=== PATIENT | male | born 1945 | race Caucasian/White ===

== ENCOUNTER → 2016-11-14 | Outpatient (CLI) | payer MEDICARE ==
--- NOTE | 2016-11-14 10:58 | US ---
EXAMINATION TYPE: US duplex aorta DATE OF EXAM: 11/14/2016 8:55 AM COMPARISON: NONE CLINICAL HISTORY: Atherosclerosis I70.0. EXAM MEASUREMENTS: Abdominal Aorta: Proximal: 2.5 x 2.6cm Mid: 2.0 x 2.0cm Distal: 1.9 x 2.1cm Bifurcation: Right: 1.1 x 1.5cm Left: 1.1 x 1.2cm TECHNOLOGIST IMPRESSION: Technical limitations, no evidence of AAA at this time IMPRESSION: No aneurysmal dilatation. Some atherosclerosis is present within the aorta.
== END | disposition home or self-care (01) ==
LOC: RADUSWWP 08:29
PROVIDERS: ATTEND Family Medicine
DX: I70.0 Atherosclerosis of aorta (principal)
CPT/HCPCS: 93979

== ENCOUNTER → 2018-08-27 | Outpatient (CLI) | payer MEDICARE ==
--- NOTE | 2018-08-27 11:46 | US ---
EXAMINATION TYPE: US duplex aorta DATE OF EXAM: 08/27/2018 COMPARISON: Prior ultrasound November 14, 2016 CLINICAL HISTORY: I70.0 Atherosclerosis of aorta. EXAM MEASUREMENTS: Abdominal Aorta: Proximal: 2.9 x 2.7cm Mid: 1.9 x 2.2cm Distal: 2.0 x 1.2cm Right Iliac: 1.2 x 1.5cm Left Iliac: 1.0 x 1.3cm Technically difficult study due to patient body habitus No evidence of AAA at this time. IMPRESSION: No greater than 3 cm abdominal aortic aneurysm. Suboptimal study without significant h[place] ge from prior.
== END ==
LOC: RADUSWWP 10:45
PROVIDERS: ATTEND Family Medicine
DX: I71.4 Abdominal aortic aneurysm, without rupture (principal)
CPT/HCPCS: 93979

== ENCOUNTER 2018-09-04 10:38 | Observation (INO) | payer MEDICARE ==
--- NOTE | 2018-09-04 10:58 | ED ---
Chest Pain [facility] - General Chief Complaint: Chest Pain Stated Complaint: chest pain Time Seen by Provider: 09/04/18 10:52 Source: patient, RN notes reviewed, old records reviewed Mode of arrival: ambulatory Limitations: no limitations - History of Present Illness Initial Comments: This is a 73-year-old male to the ER for evasive chest pain right-sided chest pain stabbing twinging chest pain. Patient has history of CAD known. Patient does follow cardiology. Patient was on normal PCP follow-up today when he mentioned to his physician that he is this new chest pain which is been noticing blood in the hospital episodic for a couple weeks to months. Patient was sent to ER for further evaluation. Patient continues to complain of chest pain here. He states yesterday for 2 days ago on [place] he did have an episode of sweating with the chest pain. He states he has terrible exercise tolerance and is always short of breath. MD Complaint: chest pain (Right side) -: minutes(s) Onset: during rest Pain Location: substernal, right chest Pain Radiation: back Severity scale (1-10): 3 Quality: tightness, sharp Consistency: constant Improves With: nothing Worsens With: exertion Anginal Symptoms: diaphoresis, dyspnea Treatments Prior to Arrival: none - Related Data Home Medications Medication Instructions Recorded Confirmed Atenolol [Tenormin] 25 mg PO HS 08/29/16 09/04/18 Isosorbide Mononitrate ER [Imdur] 30 mg PO DAILY 08/29/16 09/04/18 Latanoprost [Xalatan 0.005%] 1 drop BOTH EYES HS 08/29/16 09/04/18 [place] Extract 1 cap PO DAILY 08/29/16 09/04/18 [place]-3 Fatty Acids/Fish Oil [Fish 1 cap PO DAILY 08/29/16 09/04/18 Oil 1,000 mg Softgel] Pravastatin Sodium [Pravachol] 20 mg PO HS 08/29/16 09/04/18 RX: Aspirin 81 mg PO BID 08/29/16 09/04/18 RX: Niacin 500 mg PO BID 08/29/16 09/04/18 RX: Omeprazole 20 mg PO DAILY 08/29/16 09/04/18 RX: metFORMIN HCL 1,000 mg PO BID 08/29/16 09/04/18 Ranitidine HCl [Zantac] 150 mg PO BID 08/29/16 09/04/18 Terazosin HCl [Hytrin] 10 mg PO HS 08/29/16 09/04/18 amLODIPine [Norvasc] 5 mg PO DAILY 08/29/16 09/04/18 Allergies Allergy/AdvReac Type Severity Reaction Status Date / Time No Known Allergies Allergy Verified 09/04/18 11:43 Review of Systems ROS Statement: Those systems with pertinent positive or pertinent negative responses have been documented in the HPI. ROS Other: All systems not noted in ROS Statement are negative. 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 History of Any Multi-Drug Resistant Organisms: None Reported Past Surgical History: Heart Catheterization, Heart Catheterization With Stent, Orthopedic Surgery, Tonsillectomy Additional Past Surgical History / Comment(s): cardiac caths with stents-last time stented was 2003, 2011 cardiac cath tx medically, L hand finger ganglion cyst removal, R shoulder spurs removed, R patellar fx with surgery. Past Anesthesia/Blood Transfusion Reactions: Postoperative Nausea & Vomiting ( PONV) Date of Last Stent Placement:: 2003 Past Psychological History: No Psychological Hx Reported Smoking Status: Never smoker Past Alcohol Use History: None Reported Past Drug Use History: None Reported - Past Family History Father Family Medical History: Cancer, Coronary Artery Disease (CAD), Diabetes Mellitus Additional Family Medical History / Comment(s): Father had testicular cancer. He had heart problems and of this at the age of 76yrs. Mother Family Medical History: Coronary Artery Disease (CAD), Myocardial Infarction ([place] ) Additional Family Medical History / Comment(s): Mother at the age of 39yrs from a [place]. Brother(s) Family Medical History: Cancer Additional Family Medical History / Comment(s): Brother had prostate cancer. General Exam Limitations: no limitations General appearance: alert, in no apparent distress Head exam: Present: atraumatic, normocephalic, normal inspection Eye exam: Present: normal appearance, PERRL, EOMI. Absent: scleral icterus, conjunctival injection, periorbital swelling ENT exam: Present: normal exam, mucous membranes moist Neck exam: Present: normal inspection. Absent: tenderness, meningismus, lymphadenopathy Respiratory exam: Present: normal lung sounds bilaterally. Absent: respiratory distress, wheezes, rales, rhonchi, stridor Cardiovascular Exam: Present: regular rate, normal rhythm, normal heart sounds. Absent: systolic murmur, diastolic murmur, rubs, gallop, clicks GI/Abdominal exam: Present: soft, normal bowel sounds. Absent: distended, tenderness, guarding, rebound, rigid Extremities exam: Present: normal inspection, full ROM, normal capillary refill. Absent: tenderness, pedal edema, joint swelling, calf tenderness Back exam: Present: normal inspection Neurological exam: Present: alert, oriented X3, CN II-XII intact Psychiatric exam: Present: normal affect, normal mood Skin exam: Present: warm, dry, intact, normal color. Absent: rash Course Vital Signs 09/04/18 09/04/18 09/04/18 10:39 11:07 11:19 Temperature 98 F Pulse Rate 80 74 Pulse Rate [ 80 Bilateral] Respiratory 18 18 Rate Blood Pressure 142/81 144/74 O2 Sat by Pulse 98 96 Oximetry 09/04/18 13:41 Temperature 98.0 F Pulse Rate 68 Pulse Rate [ Bilateral] Respiratory 18 Rate Blood Pressure 116/77 O2 Sat by Pulse 96 Oximetry - Reevaluation(s) Reevaluation #1: 09/04/18 14:18 Medical record is reviewed including heart catheterization from 2016 Reevaluation #2: 09/04/18 14:18 Spoke with patient and family, patient still having persistent chest pain Reevaluation #3: 09/04/18 14:[address] Cedillo regarding admission, he is agreeable Chest Pain MDM - MDM 73 male the ER for evaluation. Patient presents today for evaluation regards to chest pain, patient has persistent chest pain here in the ER. EKG troponin negative. Patient be admitted for cardiac observation, place and anticoagulation, telemetry and serial troponins will be ordered. Critical Care Time Critical Care Time: Yes Total Critical Care Time: 31 Disposition Clinical Impression: Chest pain Disposition: ADMITTED IP TO THIS HOSP Condition: Undetermined Instructions: Chest Pain (ED) Is patient prescribed a controlled substance at d/c from ED?: No Referrals: Nic Yousif MD [Primary Care Provider] - 1-2 days
--- NOTE | 2018-09-04 11:38 | XR ---
EXAMINATION TYPE: XR chest 2V DATE OF EXAM: 09/04/2018 COMPARISON: 08/29/2016 HISTORY: 73-year-old male with chest pain TECHNIQUE: PA and lateral views FINDINGS: Heart normal size. Mild elongation thoracic aorta. Mild interstitial prominence is noted. Opacity is somewhat more patchy and confluent at the right infrahilar region. Strandy atelectasis/scar at the pe ripheral left base. No pleural effusion. IMPRESSION: Chronic changes but with more focal patchy right basilar opacity. This could represent atelectasis or developing infiltrate.
[2018-09-04 11:40] LABS: Basophils # (A) 0.1 k/uL (0-0.2); Basophils % (A) 1 %; Eosinophils # (A) 0.5 k/uL (0-0.7); Eosinophils % (A) 6 %; HCT 42.8 % (39.0-53.0); HGB 14.2 gm/dL (13.0-17.5); Lymphocytes # (A) 2.5 k/uL (1.0-4.8); Lymphocytes % (A) 32 %; MCH 31.9 pg (25.0-35.0); MCHC 33.1 g/dL (31.0-37.0); MCV 96.4 fL (80.0-100.0); Mean Platelet Volume 7.3; Monocytes # (A) 0.6 k/uL (0-1.0); Monocytes % (A) 7 %; Neutrophils # (A) 3.9 k/uL (1.3-7.7); Neutrophils % (A) 50 %; Platelet Count 189 k/uL (150-450); RBC 4.44 m/uL (4.30-5.90); RDW 12.5 % (11.5-15.5); WBC 7.8 k/uL (3.8-10.6)
[2018-09-04 11:50] LABS: ALT 33 U/L (21-72); AST 25 U/L (17-59); Albumin 4.2 g/dL (3.5-5.0); Alkaline Phosphatase 54 U/L (38-126); Anion Gap 12 mmol/L; Blood Urea Nitrogen 18 mg/dL (9-20); Calcium 9.6 mg/dL (8.4-10.2); Carbon Dioxide 23 mmol/L (22-30); Chloride 105 mmol/L (98-107); Glucose 112 mg/dL (74-99); Lipase 166 U/L (23-300); Magnesium 1.9 mg/dL (1.6-2.3); Potassium 4.4 mmol/L (3.5-5.1); Prothrombin Time 10.7 sec (9.0-12.0); Sodium 140 mmol/L (137-145); Total Bilirubin 0.5 mg/dL (0.2-1.3)
[2018-09-04 11:51] LABS: Partial Thromboplastin Time 24.3 sec (22.0-30.0)
[2018-09-04 12:12] LABS: Creatine Kinase 122 U/L (55-170)
[2018-09-04 12:23] LABS: Creatine Kinase MB 1.1 ng/mL (0.0-2.4)
[2018-09-04 12:33] LABS: Troponin I <0.012 ng/mL (0.000-0.034)
[2018-09-04] MEDS ORDERED: ASPIRIN 81 MG PO STA (14:15)
[2018-09-04] MEDS ORDERED: NITROGLYCERIN SL TABS 0.4 MG TAB SUBLINGUAL PRN (14:15)
[2018-09-04] MEDS ORDERED: HEPARIN SODIUM,PORCINE 5,000 UNIT/ML 1 ML VIAL IV PRN (14:15)
[2018-09-04] MEDS ORDERED: HEPARIN SODIUM,PORCINE 5,000 UNIT/ML 1 ML VIAL IV ONE (14:15)
[2018-09-04] MEDS: SODIUM CHLORIDE 0.9% 500 ML 500 ML IV SCH (14:59)
[2018-09-04] MEDS: HEPARIN SOD,PORK IN 0.45% NACL 25,000 UNIT in 0.45% NACL 1 250ML.BAG IV SCH (15:05)
[2018-09-04 17:37] VITALS: BMI 33.3
[2018-09-04 17:45] LABS: Creatine Kinase 99 U/L (55-170)
[2018-09-04 17:59] LABS: Creatine Kinase MB 0.9 ng/mL (0.0-2.4); Troponin I <0.012 ng/mL (0.000-0.034)
[2018-09-04] MEDS: ASPIRIN 81 MG PO SCH (20:36)
[2018-09-04] MEDS: FAMOTIDINE 20 MG TAB PO SCH (20:37)
[2018-09-04] MEDS: INSULIN ASPART 100 UNIT/ML 1 ML 10 ML VIAL SQ SCH (20:43)
[2018-09-04 20:44] LABS: Glucose,Whole Blood 117 mg/dL (75-99)
[2018-09-04] MEDS ORDERED: metFORMIN 500 MG TAB PO SCH (21:00)
[2018-09-04] MEDS ORDERED: PRAVASTATIN SODIUM 20 MG TAB PO SCH (21:00)
[2018-09-04] MEDS ORDERED: ATENOLOL 25 MG TAB PO SCH (21:00)
[2018-09-04] MEDS ORDERED: DOXAZOSIN 4 MG TAB PO SCH (21:00)
[2018-09-04] MEDS ORDERED: LATANOPROST 0.005% OPHTH DROPS 2.5 ML BTL BOTH EYES SCH (21:00)
[2018-09-04] MEDS ORDERED: METOPROLOL TARTRATE 25 MG TAB PO SCH (21:00)
[2018-09-04] MEDS: NIACIN TR 500 MG CAPSULE.ER PO SCH (21:44)
--- NOTE | 2018-09-04 22:50 | P.HPIM ---
History of Present Illness H&P Date: 09/04/18 Chief Complaint: Chest pain in the Patient is a 72-year-old female with a known history of coronary artery disease with stent placement in 2003, cardiac catheterization in 2011, hypertension, hyperlipidemia and diabetes type [address] Yousif's office due to complaints of chest pain. Patient followed with Dr. Yousif for regular checkup and suddenly developed chest pain mainly in the right retrosternal and associated with some nausea. Patient says that she felt like pain radiating to the back. Patient says that he did have chest pain on last about 1-2 hours and relieved with nitro tablets. Chest pain was associated with nausea and sweating at that time. Patient was also having shortness of breath along with pain. No fever no chills. Denied any recent travel or sick contacts at home. Denied any cough or sputum production. No headache or dizziness or lightheadedness. Chest pain did improve with nitro tablets. Patient had last had a cath patient in 2011. Troponin 2 negative. Chest x-ray showed chronic changes but with more focal right basilar opacity. This could be atelectasis of early infiltrate. No leukocytosis. BNP is not elevated. Review of Systems Constitutional: Patient denies any fever or chills . No generalized weakness or weight loss. Abdomen: Patient denied nausea vomiting and diarrhea and abdominal pain. Cardiovascular: He does have chest pain with shortness of breath. no palpitations. Respiratory: patient denied any cough is from production. No shortness of breath Neurologic: Patient denied any numbness or tingling headache. Musculoskeletal: Patient denies any complaints of joint swelling or deformity. Skin: Negative Psychiatric: Negative Endocrine: No heat or cold intolerance. No recent weight gain. Genitourinary: No dysuria or hematuria. 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 History of Any Multi-Drug Resistant Organisms: None Reported Past Surgical History: Heart Catheterization, Heart Catheterization With Stent, Orthopedic Surgery, Tonsillectomy Additional Past Surgical History / Comment(s): cardiac caths with stents-last time stented was 2011 cardiac cath tx medically, L hand finger ganglion cyst removal, R shoulder spurs removed, R patellar fx with surgery. Past Anesthesia/Blood Transfusion Reactions: Postoperative Nausea & Vomiting ( PONV) Date of Last Stent Placement:: 2003 Past Psychological History: No Psychological Hx Reported Smoking Status: Never smoker Past Alcohol Use History: None Reported Past Drug Use History: None Reported - Past Family History Father Family Medical History: Cancer, Coronary Artery Disease (CAD), Diabetes Mellitus Additional Family Medical History / Comment(s): Father had testicular cancer. He had heart problems and of this at the age of 76yrs. Mother Family Medical History: Coronary Artery Disease (CAD), Myocardial Infarction ([place] ) Additional Family Medical History / Comment(s): Mother at the age of 39yrs from a [place]. Brother(s) Family Medical History: Cancer Additional Family Medical History / Comment(s): Brother had prostate cancer. Medications and Allergies Home Medications Medication Instructions Recorded Confirmed Type Aspirin 81 mg PO BID 08/29/16 09/04/18 History Atenolol [Tenormin] 25 mg PO HS 08/29/16 09/04/18 History Isosorbide Mononitrate ER [Imdur] 30 mg PO DAILY 08/29/16 09/04/18 History Latanoprost [Xalatan 0.005%] 1 drop BOTH EYES HS 08/29/16 09/04/18 History Niacin 500 mg PO BID 08/29/16 09/04/18 History [place] Extract 1 cap PO DAILY 08/29/16 09/04/18 History [place]-3 Fatty Acids/Fish Oil [Fish 1 cap PO DAILY 08/29/16 09/04/18 History Oil 1,000 mg Softgel] Omeprazole 20 mg PO DAILY 08/29/16 09/04/18 History Pravastatin Sodium [Pravachol] 20 mg PO HS 08/29/16 09/04/18 History Ranitidine HCl [Zantac] 150 mg PO BID 08/29/16 09/04/18 History Terazosin HCl [Hytrin] 10 mg PO HS 08/29/16 09/04/18 History amLODIPine [Norvasc] 5 mg PO DAILY 08/29/16 09/04/18 History metFORMIN HCL 1,000 mg PO BID 08/29/16 09/04/18 History Allergies Allergy/AdvReac Type Severity Reaction Status Date / Time No Known Allergies Allergy Verified 09/04/18 11:43 Physical Exam Vitals: Vital Signs Temp Pulse Pulse Resp BP Pulse Ox 09/04/18 13:41 98.0 F 68 18 116/77 96 09/04/18 11:19 74 18 144/74 96 09/04/18 11:07 80 09/04/18 10:39 98 F 80 18 142/81 98 Intake and Output 09/03/18 09/04/18 09/04/18 22:59 06:59 14:59 Other: Weight 112.037 kg PHYSICAL EXAMINATION: Patient is lying in the bed comfortably, no acute distress, awake alert and oriented.. HEENT: Normocephalic. Neck is supple. Pupils reactive. Nostrils clear. Oral cavity is moist. Ears reveal no drainage. Neck reveals no JVD, carotid bruits, or thyromegaly. CHEST EXAMINATION: Trachea is central. Symmetrical expansion. Lung cho clear to auscultation and percussion. CARDIAC: Normal S1, S2 with no gallops. No murmurs ABDOMEN: Soft. Bowel sounds normal. No organomegaly. No abdominal bruits. Extremities: reveal no edema. No clubbing or cyanosis Neurologically awake, alert, oriented x3 with well-coordinated movements. No focal deficits noted Skin: No rash or skin lesions. Psychiatric: Coperative. Nonsuicidal Musculoskeletal: No joint swelling or deformity. Normal range of motion. Results CBC & Chem 7: 09/04/18 11:02 09/04/18 11:02 Labs: Abnormal Lab Results - Last 24 Hours (Table) 09/04/18 Range/Units 11:02 Glucose 112 H (74-99) mg/dL Assessment and Plan Assessment: Atypical chest pain. Rule out ACS Possible right basilar pneumonia with early infiltrate on chest x-ray Coronary artery disease with history of stent placement in 2003 and last cardiac cardiac catheterization in 2011 GERD Hypertension Diabetes type 2 [id number] Osteoarthritis in shoulders and spine DVT prophylaxis Plan: Patient will be continued on telemetry monitoring. Heparin drip was started in the ER. Continue with aspirin and statins and beta blockers. Patient will be started on antibiotics in the form of ceftriaxone and azithromycin for possible pneumonia. Continue to follow closely. Cardiology was consulted. Further recommendations based on clinical course. Continue the home medications. Time with Patient: Greater than 30
[2018-09-04 22:57] LABS: Creatine Kinase 89 U/L (55-170)
[2018-09-04] MEDS ORDERED: AZITHROMYCIN 500 MG TAB PO SCH (23:00)
[2018-09-04 23:11] LABS: Creatine Kinase MB 0.8 ng/mL (0.0-2.4); Troponin I <0.012 ng/mL (0.000-0.034)
[2018-09-05 00:16] VITALS: RESP 16
[2018-09-05 05:50] LABS: Basophils # (A) 0.1 k/uL (0-0.2); Basophils % (A) 1 %; Eosinophils # (A) 0.5 k/uL (0-0.7); Eosinophils % (A) 7 %; HCT 40.7 % (39.0-53.0); HGB 13.6 gm/dL (13.0-17.5); Lymphocytes # (A) 2.7 k/uL (1.0-4.8); Lymphocytes % (A) 37 %; MCH 32.3 pg (25.0-35.0); MCHC 33.4 g/dL (31.0-37.0); MCV 96.9 fL (80.0-100.0); Mean Platelet Volume 7.2; Monocytes # (A) 0.5 k/uL (0-1.0); Monocytes % (A) 7 %; Neutrophils # (A) 3.4 k/uL (1.3-7.7); Neutrophils % (A) 46 %; Platelet Count 144 k/uL (150-450); RDW 12.5 % (11.5-15.5); WBC 7.4 k/uL (3.8-10.6)
[2018-09-05 06:07] LABS: Anion Gap 7 mmol/L; Blood Urea Nitrogen 16 mg/dL (9-20); Calcium 9.1 mg/dL (8.4-10.2); Carbon Dioxide 25 mmol/L (22-30); Chloride 107 mmol/L (98-107); Cholesterol 124 mg/dL (<200); Glucose 105 mg/dL (74-99); HDL Cholesterol 36 mg/dL (40-60); LDL Cholesterol,Calculated 52 mg/dL (0-99); Magnesium 1.8 mg/dL (1.6-2.3); Potassium 4.3 mmol/L (3.5-5.1); Sodium 139 mmol/L (137-145); Triglycerides 178 mg/dL (<150)
[2018-09-05] MEDS: INSULIN ASPART 100 UNIT/ML 1 ML 10 ML VIAL SQ SCH ×3 (06:12→16:45)
[2018-09-05 06:13] LABS: Glucose,Whole Blood 107 mg/dL (75-99)
[2018-09-05] MEDS ORDERED: ATORVASTATIN 80 MG TAB PO SCH (09:00)
[2018-09-05] MEDS ORDERED: ATENOLOL 25 MG TAB PO SCH (09:00)
[2018-09-05] MEDS ORDERED: ASPIRIN 325 MG TAB PO SCH (09:00)
[2018-09-05] MEDS ORDERED: SODIUM CHLORIDE 0.9% 1,000 ML in EMPTY BAG 1 BAG IV ONE (09:20)
[2018-09-05] MEDS ORDERED: NITROGLYCERIN SL TABS 0.4 MG TAB SUBLINGUAL PRN (09:20)
[2018-09-05] MEDS ORDERED: ATORVASTATIN 80 MG TAB PO STA (09:20)
[2018-09-05] MEDS ORDERED: ALPRAZolam 0.25 MG TAB PO PRN (09:20)
[2018-09-05] MEDS ORDERED: ASPIRIN 325 MG TAB PO STA (09:20)
[2018-09-05] MEDS ORDERED: ALPRAZolam 0.5 MG TAB PO PRN (09:20)
[2018-09-05] MEDS: NIACIN TR 500 MG CAPSULE.ER PO SCH (09:21)
[2018-09-05] MEDS: FAMOTIDINE 20 MG TAB PO SCH (09:21)
[2018-09-05] MEDS: ASPIRIN 81 MG PO SCH (09:21)
--- NOTE | 2018-09-05 09:25 | P.CRDCN ---
History of Present Illness Consult date: 09/05/18 Requesting physician: Ashley Cedillo Consult reason: chest pain Chief complaint: Chest pain History of present illness: This is a pleasant 73-year-old gentleman who follows with Dr. Juan Farah in the office. He has a known history of coronary artery disease with prior circumflex stenting in 2002, most recent cardiac catheterization was performed in August 2016 which revealed a total occlusion of the circumflex, LAD ramus and RCA free of any significant disease, preserved left ventricular systolic function. Patient also has history of diabetes, hyperlipidemia, peripheral vascular disease, and family history of premature coronary artery disease. He presents to the hospital on this occasion with symptoms of chest discomfort. According to the patient on , he had substantial chest pressure and heaviness with associated diaphoresis, radiating to his back , the day after he states that he felt well. Yesterday the patient went to Dr. Burnett office and again develop symptoms, less severe as on but quite significant. He was advised to come to the hospital for further evaluation. Chest x-ray showed chronic changes more focal patchy right basilar opacity. EKG shows a normal sinus rhythm with no acute changes. Blood pressure 120/60 with a heart rate in the 60s, afebrile, 96% on room air. White blood cell count 7.4, hemoglobin 13.6, platelet count 144. Sodium 139, potassium 4.3, BUN 16, creatinine 0.8. D-dimer 0.3. Troponins are negative 3. At the time of my examination this morning, he is currently chest pain-free. 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 History of Any Multi-Drug Resistant Organisms: None Reported Past Surgical History: Heart Catheterization, Heart Catheterization With Stent, Orthopedic Surgery, Tonsillectomy Additional Past Surgical History / Comment(s): cardiac caths with stents-last time stented was 2011 cardiac cath tx medically, L hand finger ganglion cyst removal, R shoulder spurs removed, R patellar fx with surgery. Past Anesthesia/Blood Transfusion Reactions: Postoperative Nausea & Vomiting ( PONV) Date of Last Stent Placement:: 2003 Past Psychological History: No Psychological Hx Reported Smoking Status: Never smoker Past Alcohol Use History: None Reported Past Drug Use History: None Reported - Past Family History Father Family Medical History: Cancer, Coronary Artery Disease (CAD), Diabetes Mellitus Additional Family Medical History / Comment(s): Father had testicular cancer. He had heart problems and of this at the age of 76yrs. Mother Family Medical History: Coronary Artery Disease (CAD), Myocardial Infarction ([place] ) Additional Family Medical History / Comment(s): Mother at the age of 39yrs from a [place]. Brother(s) Family Medical History: Cancer Additional Family Medical History / Comment(s): Brother had prostate cancer. Medications and Allergies Home Medications Medication Instructions Recorded Confirmed Type Aspirin 81 mg PO BID 08/29/16 09/04/18 History Atenolol [Tenormin] 25 mg PO HS 08/29/16 09/04/18 History Isosorbide Mononitrate ER [Imdur] 30 mg PO DAILY 08/29/16 09/04/18 History Latanoprost [Xalatan 0.005%] 1 drop BOTH EYES HS 08/29/16 09/04/18 History Niacin 500 mg PO BID 08/29/16 09/04/18 History [place] Extract 1 cap PO DAILY 08/29/16 09/04/18 History [place]-3 Fatty Acids/Fish Oil [Fish 1 cap PO DAILY 08/29/16 09/04/18 History Oil 1,000 mg Softgel] Omeprazole 20 mg PO DAILY 08/29/16 09/04/18 History Pravastatin Sodium [Pravachol] 20 mg PO HS 08/29/16 09/04/18 History Ranitidine HCl [Zantac] 150 mg PO BID 08/29/16 09/04/18 History Terazosin HCl [Hytrin] 10 mg PO HS 08/29/16 09/04/18 History amLODIPine [Norvasc] 5 mg PO DAILY 08/29/16 09/04/18 History metFORMIN HCL 1,000 mg PO BID 08/29/16 09/04/18 History Allergies Allergy/AdvReac Type Severity Reaction Status Date / Time No Known Allergies Allergy Verified 09/04/18 11:43 Physical Exam Vitals: Vital Signs Temp Pulse Pulse Pulse Resp BP BP 09/05/18 04:00 97.6 F 64 16 120/64 09/05/18 00:00 97.5 F L 51 L 16 126/73 09/04/18 20:00 98.2 F 58 L 18 126/71 09/04/18 17:24 97.3 F L 50 L 16 136/73 09/04/18 16:28 97.8 F 63 13 130/84 09/04/18 15:27 67 14 122/83 09/04/18 15:00 67 18 116/77 09/04/18 13:41 98.0 F 68 18 116/77 09/04/18 11:19 74 18 144/74 09/04/18 11:07 80 09/04/18 10:39 98 F 80 18 142/81 Pulse Ox 09/05/18 04:00 96 09/05/18 00:00 95 09/04/18 20:00 96 09/04/18 17:24 95 09/04/18 16:28 97 09/04/18 15:27 97 09/04/18 15:00 97 09/04/18 13:41 96 09/04/18 11:19 96 09/04/18 11:07 09/04/18 10:39 98 Intake and Output 09/04/18 09/05/18 09/05/18 22:59 06:59 14:59 Intake Total 120 436.477 Balance 120 436.477 Intake: Intake, IV Titration 436.477 Amount Heparin Sod,Pork in 0.45% 176.477 NaCl 25,000 unit In 0.45 % NaCl 1 250ml.bag @ 8.93 UNITS/KG/HR 10 mls/hr IV .Q24H [facility] Rx#:[id number] Sodium Chloride 0.9% 500 160 ml 500 ml @ 20 mls/hr IV .Q24H [facility] Rx#:[id number] cefTRIAXone 1,000 mg In 100 Sodium Chloride 0.9% 50 ml @ 100 mls/hr IVPB Q24H [facility] Rx#:[id number] Oral 120 Other: Voiding Method Toilet Toilet # Voids 1 Weight 111.3 kg 106.7 kg PHYSICAL EXAMINATION: GENERAL: 73-year-old gentleman in no acute distress at time of my examination HEENT: Head is atraumatic, normocephalic. Pupils equal, round. Sclera anicteric. Conjunctiva are clear. Mucous membranes of the mouth are moist. Neck is supple. There is no elevated jugular venous pressure.] bruit is heard. HEART EXAMINATION: Heart S1, S2 normal. No murmur or gallop heard. CHEST EXAMINATION: Lungs are clear to auscultation and precussion. No chest wall tenderness is noted on palpation or with deep breathing. ABDOMEN: Soft, nontender. Bowel sounds are heard. No organomegaly noted. EXTREMITIES: 2+ peripheral pulses with no evidence of peripheral edema and no calf tenderness noted. NEUROLOGIC patient is awake, alert and oriented 3 . . Results 09/05/18 05:17 09/05/18 05:17 Cardiac Enzymes 09/04/18 09/04/18 09/04/18 Range/Units 11:02 11:02 17:11 AST 25 (17-59) U/L CK-MB (CK-2) 1.1 0.9 (0.0-2.4) ng/mL Troponin I <0.012 <0.012 (0.000-0.034) ng/mL 09/04/18 Range/Units 22:02 AST (17-59) U/L CK-MB (CK-2) 0.8 (0.0-2.4) ng/mL Troponin I <0.012 (0.000-0.034) ng/mL Coagulation 09/04/18 09/04/18 09/05/18 Range/Units 11:02 22:02 05:17 PT 10.7 (9.0-12.0) sec APTT 24.3 31.0 H 48.8 H (22.0-30.0) sec Lipids 09/05/18 Range/Units 05:17 Triglycerides 178 H (<150) mg/dL Cholesterol 124 (<200) mg/dL HDL Cholesterol 36 L (40-60) mg/dL CBC 09/04/18 09/05/18 Range/Units 11:02 05:17 WBC 7.8 7.4 (3.8-10.6) k/uL RBC 4.44 4.20 L (4.30-5.90) m/uL Hgb 14.2 13.6 (13.0-17.5) gm/dL Hct 42.8 40.7 (39.0-53.0) % Plt Count 189 144 L (150-450) k/uL Comprehensive Metabolic Panel 09/04/18 09/05/18 Range/Units 11:02 05:17 Sodium 140 139 (137-145) mmol/L Potassium 4.4 4.3 (3.5-5.1) mmol/L Chloride 105 107 (98-107) mmol/L Carbon Dioxide 23 25 (22-30) mmol/L BUN 18 16 (9-20) mg/dL Creatinine 0.84 0.87 (0.66-1.25) mg/dL Glucose 112 H 105 H (74-99) mg/dL Calcium 9.6 9.1 (8.4-10.2) mg/dL AST 25 (17-59) U/L ALT 33 (21-72) U/L Alkaline Phosphatase 54 (38-126) U/L Total Protein 7.0 (6.3-8.2) g/dL Albumin 4.2 (3.5-5.0) g/dL Current Medications Generic Name Dose Route Start Last Admin Trade Name Freq PRN Reason Stop Dose Admin Aspirin 81 mg 09/04/18 21:00 09/04/18 20:36 Aspirin PO 81 mg BID JORGE Administration Atenolol 25 mg 09/05/18 09:00 Tenormin PO DAILY JORGE Azithromycin 500 mg 09/04/18 23:00 09/04/18 23:44 Zithromax PO 500 mg DAILY@2100 JORGE Administration Doxazosin Mesylate 8 mg 09/04/18 21:00 09/04/18 20:37 Cardura PO 8 mg HS JORGE Administration Famotidine 20 mg 09/04/18 21:00 09/04/18 20:37 Pepcid PO 20 mg BID JORGE Administration Heparin Sodium (Porcine) 0 unit 09/04/18 14:15 09/04/18 23:27 Heparin IV 4,000 unit Q6HR PRN Administration Low PTT Protocol Heparin Sodium/Sodium Chloride 250 mls @ 10 mls/hr 09/04/18 14:15 09/05/18 06 :25 25,000 unit/ Sodium Chloride IV 11.9 units/kg/hr .Q24H JORGE 13.33 mls/hr Titration Protocol 8.93 UNITS/KG/HR Sodium Chloride 500 mls @ 20 mls/hr 09/04/18 15:00 09/04/18 14:59 Saline 0.9% IV 20 mls/hr .Q24H [facility]GE Administration Ceftriaxone Sodium 1,000 mg/ 50 mls @ 100 mls/hr 09/04/18 23:00 09/04/18 23: 36 Sodium Chloride IVPB 100 mls/hr Q24H [facility]GE Administration Insulin Aspart 0 unit 09/04/18 21:00 09/05/18 06:12 Novolog SQ Not Given ACHS [facility] Protocol Latanoprost 1 drops 09/04/18 21:00 09/04/18 21:44 Xalatan 0.005% BOTH EYES 1 drops HS JORGE Administration Niacin 500 mg 09/04/18 21:00 09/04/18 21:44 Niacin Tr PO 500 mg BID JORGE Administration Nitroglycerin 0.4 mg 09/04/18 14:15 Nitrostat SUBLINGUAL Q5M PRN Chest Pain Pravastatin Sodium 20 mg 09/04/18 21:00 09/04/18 20:38 Pravachol PO 20 mg HS JORGE Administration Intake and Output 09/04/18 09/05/18 09/05/18 22:59 06:59 14:59 Intake Total 120 436.477 Balance 120 436.477 Intake: Intake, IV Titration 436.477 Amount Heparin Sod,Pork in 0.45% 176.477 NaCl 25,000 unit In 0.45 % NaCl 1 250ml.bag @ 8.93 UNITS/KG/HR 10 mls/hr IV .Q24H [facility] Rx#:[id number] Sodium Chloride 0.9% 500 160 ml 500 ml @ 20 mls/hr IV .Q24H [facility] Rx#:[id number] cefTRIAXone 1,000 mg In 100 Sodium Chloride 0.9% 50 ml @ 100 mls/hr IVPB Q24H [facility] Rx#:[id number] Oral 120 Other: Voiding Method Toilet Toilet # Voids 1 Weight 111.3 kg 106.7 kg 09/05/18 05:17 09/05/18 05:17 EKG Interpretations (text) EKG shows normal sinus rhythm with no acute changes. Assessment and Plan Plan: Assessment and plan #1 chest discomfort, suggestive of unstable angina. Troponins negative 3. EKG shows normal sinus rhythm with no acute changes. #2 known history of coronary artery disease with successful stenting of the circumflex artery by Dr. [place]. Most recent cardiac cath was performed by Dr. MARIBELL Farah in 2016 which revealed a total occlusion of the circumflex which was not new, the LAD ramus and RCA were free of any significant disease, LV function was preserved. #3 diabetes #4 hyperlipidemia #5 PVD #6 family history of premature coronary artery disease Plan We will repeat an echocardiogram with Doppler study. Patient has also been advised to undergo cardiac catheterization for more definitive diagnosis. The risks and benefits again were explained to the patient in detail. Dr. River has spoke with Dr. Juan Farah who will perform the procedure this morning. Further recommendations will be based on these findings and the patient's clinical course. DNP note has been reviewed, I agree with a documented findings and plan of care. Patient was seen and examined.
[2018-09-05] MEDS ORDERED: LIDOCAINE 1% INJ 10MG/ML (20 ML MDV) ONE (10:14)
[2018-09-05] MEDS ORDERED: VERAPAMIL 2.5 MG/ML 2 ML AMP ONE (10:15)
[2018-09-05] MEDS ORDERED: HEPARIN SODIUM 1,000 UN/ML (10ML VL) ONE (10:15)
[2018-09-05] MEDS ORDERED: IV FLUID CONTINUATION 1,000 ML IV ONE (10:44)
[2018-09-05] MEDS ORDERED: MIDAZOLAM 2 MG/2 ML VIAL IV ONE (10:55)
[2018-09-05] MEDS ORDERED: LIDOCAINE 1% INJ 10MG/ML (20 ML MDV) SQ ONE (11:02)
[2018-09-05] MEDS: VERAPAMIL SYRINGE (5 MG/10 ML) INTRAARTER ONE ×2 (11:03→11:19)
[2018-09-05] MEDS ORDERED: HEPARIN SODIUM 1,000 UN/ML (10ML VL) IV ONE (11:05)
[2018-09-05] MEDS ORDERED: IOPAMIDOL-370 100ML BTL INJ ONE (11:16)
--- NOTE | 2018-09-05 11:26 | ECHOF ---
Referral Reason:chest pain MEASUREMENTS -------- HEIGHT: 182.9 cm WEIGHT: 106.6 kg BP: RVIDd: 4.3 cm (< 3.3) IVSd: 1.3 cm (0.6 - 1.1) LVIDd: 4.6 cm (3.9 - 5.3) LVPWd: 1.5 cm (0.6 - 1.1) IVSs: 1.6 cm LVIDs: 3.7 cm LVPWs: 1.4 cm Ao Diam: 3.1 cm (2.0 - 3.7) AV Cusp: 1.9 cm (1.5 - 2.6) LA Diam: 3.8 cm (2.7 - 3.8) MV EXCURSION: 23.601 mm (> 18.000) MV EF SLOPE: 102 mm/s (70 - 150) EPSS: 0.9 cm MV E [place]: 0.40 m/s MV DecT: 327 ms MV A [place]: 0.84 m/s MV E/A Ratio: 0.48 AR PHT: 522 ms RAP: 5.00 mmHg RVSP: 15.50 mmHg FINDINGS -------- Sinus rhythm. This was a technically adequate study. The left ventricular size is normal. There is mild concentric left ventricular hypertrophy. Overa ll left ventricular systolic function is normal with, an EF between 55 - 60 %. The right ventricle is mild to moderately enlarged. The left atrial size is normal. The right atrial size is normal. There is mild aortic valve sclerosis. There is mild aortic regurgitation. Mild mitral annular calcification present. Mild mitral regurgitation is present. Mild tricuspid regurgitation present. There is no evidence of pulmonary hypertension. The right v entricular systolic pressure, as measured by Doppler, is 15.50mmHg. There is no pulmonic regurgitation present. The aortic root size is normal. There is no pericardial effusion. CONCLUSIONS -------- 1. The left ventricular size is normal. 2. There is mild concentric left ventricular hypertrophy. 3. Overall left ventricular systolic function is normal with, an EF between 55 - 60 %. 4. The right ventricle is mild to moderately enlarged. 5. The left atrial size is normal. 6. The right atrial size is normal. 7. There is mild aortic valve sclerosis. 8. There is mild aortic regurgitation. 9. Mild mitral annular calcification present. 10. Mild mitral regurgitation is present. 11. Mild tricuspid regurgitation present. 12. There is no evidence of pulmonary hypertension. 13. The right ventricular systolic pressure, as measured by Doppler, is 15.50mmHg. 14. There is no pulmonic regurgitation present. 15. The aortic root size is normal. 16. There is no pericardial effusion. DIGITAL PRODUCT SPECIALIST: Dede Oropeza RDCS
[2018-09-05] MEDS ORDERED: SODIUM CHLORIDE 0.9% 1,000 ML IV SCH (11:45)
[2018-09-05 11:56] LABS: Glucose,Whole Blood 112 mg/dL (75-99)
--- NOTE | 2018-09-05 12:00 | CC ---
CARDIAC CATHETERIZATION REPORT DATE OF SERVICE: 09/05/2018 PROCEDURE: Left heart catheterization, coronary angiography and left ventriculography. PERFORMED BY: Dr. Alvarez Farah. CLINICAL INFORMATION: Mr. Elio Silverio is a 73-year-old gentleman with a known history of hypertension, hyperlipidemia, CAD, previous stenting of circumflex which was eventually occluded. In August 2016, I performed a cardiac cath which revealed total occlusion of nondominant RCA at the site of previous stenting, but LAD and RCA were patent with ejection fraction in the range of 45%-50%. He presented to the hospital with symptoms of angina, was advised cardiac cath after due discussion and evaluation by Dr. River. Risks, benefits, options were explained to the patient. PROCEDURE NOTE: Under local anesthesia and strict aseptic precautions, a 6-Upper [place] introducer was placed in the right radial artery. Using a standard Meenu catheters, I performed coronary angiography and a pigtail catheter was used to perform LV gram. The sheath was taken out and TR band applied as per protocol and the saturation of the fingers of the right hand was 92%. Patient tolerated procedure well without complications. ANESTHESIA: Moderate conscious sedation time was 18 minutes. He received Versed and his oxygen saturation, hemodynamics and EKG were monitored closely. CARDIAC CATHETERIZATION FINDINGS: The right coronary artery technically dominant vessel has no significant disease, distally bifurcates into PDA and PLV, both of which supply a fair amount of myocardium. There were several smaller branches, but no significant disease. Minor irregularities were noted. LEFT MAIN CORONARY ARTERY: Short patent vessel free of significant disease that bifurcates into LAD and circumflex. Left main itself is free of significant disease. LEFT ANTERIOR DESCENDING CORONARY ARTERY: Good caliber vessel gives off a high diagonal almost looks like a ramus intermedius. No significant disease in the first diagonal and the LAD itself has minor irregularities. In the midportion, gives a large diagonal branch which is free of significant disease hand supplies a sizable amount of myocardium. The distal LAD has minor diffuse irregularities and curves over the apex to supply the inferoapical portion of left ventricle. LEFT POSTERIOR CIRCUMFLEX CORONARY ARTERY: Technically this is a nondominant vessel which is totally occluded and seen as a stump. LEFT VENTRICULOGRAM: This was performed in 30 degree PÉREZ projection, revealed a left ventricle which is of normal size with good systolic function. There is evidence of mildly mid inferior wall hypokinesia with estimated ejection fraction of 45%-50% by visual inspection compared to previous study. There is no significant change in LV gram. FINAL IMPRESSION: This patient has a total occlusion of nondominant circumflex. LAD and RCA are patent. LAD has minor irregularities, gives off good-sized diagonal branches which are free of significant disease. Distal LAD has mild diffuse disease unchanged from before. RCA is a dominant disease-free vessel which has minor irregularities. An LV-gram revealed ejection fraction in the range of 45%-50% with mild inferior wall hypokinesia without significant mitral regurgitation. RECOMMENDATIONS: Continued medical therapy with risk factor modification was advised. Patient will be discharged today. Findings were discussed with the patient and family. MMODL / IJN: [id number] /
[2018-09-05] MEDS: SODIUM CHLORIDE 0.9% 500 ML 500 ML IV SCH (15:12)
[2018-09-05] MEDS: HEPARIN SOD,PORK IN 0.45% NACL 25,000 UNIT in 0.45% NACL 1 250ML.BAG IV SCH (15:12)
[2018-09-05 16:34] LABS: Glucose,Whole Blood 108 mg/dL (75-99)
[2018-09-05 16:42] VITALS: BP 161/58; PULSE 58; TEMP 97
--- NOTE | 2018-09-15 23:03 | P.DS ---
Providers Date of admission: 09/04/18 14:15 Expected date of discharge: 09/05/18 Attending physician: Ashley Cedillo Consults: 09/04/18 14:15 Consult Physician Urgent Consulting Provider: Antoine River Consult Reason/Comments: cp Do you want consulting provider notified?: Yes Primary care physician: Nic Yousif Hospital Course: Discharge diagnosis Unstable angina/ chest pain. Ruled out ACS. Status post cardiac catheterization. Medical management as per cardiology Possible right basilar pneumonia with early infiltrate on chest x-ray Coronary artery disease with history of stent placement in 2003 and last cardiac cardiac catheterization in 2011 GERD Hypertension Diabetes type 2 [id number] Osteoarthritis in shoulders and spine DVT prophylaxis Hospital course Patient is a 72-year-old female with a known history of coronary artery disease with stent placement in 2003, cardiac catheterization in 2011, hypertension, hyperlipidemia and diabetes type [address] Yousif's office due to complaints of chest pain. Patient followed with Dr. Yousif for regular checkup and suddenly developed chest pain mainly in the right retrosternal and associated with some nausea. Patient says that she felt like pain radiating to the back. Patient says that he did have chest pain on last about 1-2 hours and relieved with nitro tablets. Chest pain was associated with nausea and sweating at that time. Patient was also having shortness of breath along with pain. No fever no chills. Denied any recent travel or sick contacts at home. Denied any cough or sputum production. No headache or dizziness or lightheadedness. Chest pain did improve with nitro tablets. Patient had last had a cath patient in 2011. Patient had most recent cardiac catheterization was performed in August 2016 which revealed a total occlusion of the circumflex, LAD ramus and RCA free of any significant disease, preserved left ventricular systolic function. Troponin 2 negative. Chest x-ray showed chronic changes but with more focal right basilar opacity. This could be atelectasis of early infiltrate. No leukocytosis. BNP is not elevated. 09/05/2018 Patient underwent cardiac catheterization showed complete occlusion of circumflex nondominant. Ejection fraction 45-50%. With inferior wall hypokinesis. Cardiology recommends medical management at this time. Otherwise no complaints of chest pain or shortness of breath. Serial troponins negative. Patient was seen by cardiology. No acute overnight issues otherwise. No nausea vomiting or abdominal pain. Patient is stable to be discharged home as per cardiology standpoint. Plan: Patient was continued on telemetry monitoring. Heparin drip was started in the ER. Continue with aspirin and statins and beta blockers. Patient was also started on antibiotics in the form of ceftriaxone and azithromycin for possible pneumonia. He is status post cardiac catheterization and medical management was recommended. Outpatient follow-up with cardiology and primary care physician. PHYSICAL EXAMINATION: Patient is lying in the bed comfortably, no acute distress, awake alert and oriented.. HEENT: Normocephalic. Neck is supple. Pupils reactive. Nostrils clear. Oral cavity is moist. Ears reveal no drainage. Neck reveals no JVD, carotid bruits, or thyromegaly. CHEST EXAMINATION: Trachea is central. Symmetrical expansion. Lung cho clear to auscultation and percussion. CARDIAC: Normal S1, S2 with no gallops. No murmurs ABDOMEN: Soft. Bowel sounds normal. No organomegaly. No abdominal bruits. Extremities: reveal no edema. No clubbing or cyanosis Neurologically awake, alert, oriented x3 with well-coordinated movements. No focal deficits noted Skin: No rash or skin lesions. Psychiatric: Coperative. Nonsuicidal Musculoskeletal: No joint swelling or deformity. Normal range of motion. Discharge vitals reviewed Patient Condition at Discharge: Undetermined Plan - Discharge Summary Discharge Rx Participant: No New Discharge Prescriptions: Continue [place] Fatty Acids/Fish Oil [Fish Oil 1,000 mg Softgel] 1 cap PO DAILY Latanoprost [Xalatan 0.005%] 1 drop BOTH EYES HS Terazosin HCl [Hytrin] 10 mg PO HS Ranitidine HCl [Zantac] 150 mg PO BID Pravastatin Sodium [Pravachol] 20 mg PO HS Niacin 500 mg PO BID metFORMIN HCL 1,000 mg PO BID amLODIPine [Norvasc] 5 mg PO DAILY Omeprazole 20 mg PO DAILY Isosorbide Mononitrate ER [Imdur] 30 mg PO DAILY Atenolol [Tenormin] 25 mg PO HS Aspirin 81 mg PO BID [place] Extract 1 cap PO DAILY Discharge Medication List Aspirin 81 mg PO BID 08/29/16 [History] Atenolol [Tenormin] 25 mg PO HS 08/29/16 [History] Isosorbide Mononitrate ER [Imdur] 30 mg PO DAILY 08/29/16 [History] Latanoprost [Xalatan 0.005%] 1 drop BOTH EYES HS 08/29/16 [History] Niacin 500 mg PO BID 08/29/16 [History] [place] Extract 1 cap PO DAILY 08/29/16 [History] [place] Fatty Acids/Fish Oil [Fish Oil 1,000 mg Softgel] 1 cap PO DAILY [History] Omeprazole 20 mg PO DAILY 08/29/16 [History] Pravastatin Sodium [Pravachol] 20 mg PO HS 08/29/16 [History] Ranitidine HCl [Zantac] 150 mg PO BID 08/29/16 [History] Terazosin HCl [Hytrin] 10 mg PO HS 08/29/16 [History] amLODIPine [Norvasc] 5 mg PO DAILY 08/29/16 [History] metFORMIN HCL 1,000 mg PO BID 08/29/16 [History] Follow up Appointment(s)/Referral(s): Nic Yousif MD [Primary Care Provider] - 09/12/18 10:30 am Mimi Farah MD [STAFF PHYSICIAN] - 09/16/18 8:00 am (Dr. Farah wants appointment on this day.) Patient Instructions/Handouts: Heart Healthy Diet (DC), After Radial Heart Catheterization (GEN) Discharge Disposition: HOME SELF-CARE
== END 2018-09-05 19:02 | disposition home or self-care (01) ==
LOC: EC 10:38 → 1SOBS 14:15 → 3SCARD 16:17
PROVIDERS: ADMIT Internal Medicine; ATTEND Internal Medicine
DX: R07.89 Other chest pain (principal); R06.02 Shortness of breath; R11.0 Nausea; R61 Generalized hyperhidrosis; I25.10 Atherosclerotic heart disease of native coronary artery without angina pectoris; I10 Essential (primary) hypertension; E78.5 Hyperlipidemia, unspecified; I25.82 Chronic total occlusion of coronary artery; E11.51 Type 2 diabetes mellitus with diabetic peripheral angiopathy without gangrene; K21.9 Gastro-esophageal reflux disease without esophagitis; H35.30 Unspecified macular degeneration; H26.9 Unspecified cataract; M19.012 Primary osteoarthritis, left shoulder; M19.011 Primary osteoarthritis, right shoulder; M47.9 Spondylosis, unspecified; Z79.82 Long term (current) use of aspirin; Z79.84 Long term (current) use of oral hypoglycemic drugs; Z79.899 Other long term (current) drug therapy; Z95.5 Presence of coronary angioplasty implant and graft; Z83.3 Family history of diabetes mellitus; Z82.49 Family history of ischemic heart disease and other diseases of the circulatory system; Z80.43 Family history of malignant neoplasm of testis; Z80.42 Family history of malignant neoplasm of prostate
CPT/HCPCS: 96376 ×2; 96366 ×3; 96368; 96365; 99291; 36415; 93005; 93306; 93458; 85379; 83880; 80061; 80053; 80048; 82550; 82553; 83690; 83735 ×2; 84484; 85025 ×2; 85610; 85730 ×2; 83036; 71046; 99152; G0378 ×2; C1894; J2250; J1644 ×3; J2001; J0696; Q9967

== ENCOUNTER → 2020-07-29 | Outpatient (CLI) | payer MEDICARE | END | disposition home or self-care (01) | LOC: LABWHC1 13:11 | PROVIDERS: ATTEND Family Medicine | DX: U07.1 COVID-19 (principal) | CPT/HCPCS: 87502; U0003; C9803 ==

== ENCOUNTER 2020-07-30 11:50 | Inpatient (IN) | payer MEDICARE ==
[2020-07-30] MEDS ORDERED: dexAMETHasone 2 MG TAB PO STA (12:15)
--- NOTE | 2020-07-30 12:18 | ED ---
General Adult HPI - General Chief complaint: Upper Respiratory Infection Stated complaint: poss Covid Time Seen by Provider: 07/30/20 12:06 Source: patient, RN notes reviewed, old records reviewed Mode of arrival: wheelchair Limitations: no limitations - History of Present Illness Initial comments: 75-year-old male presenting for evaluation of possible coronavirus. Patient sent in from primary care for evaluation of cough, sinus congestion myalgias. Patient has not had a measured temperature greater than 99. He's had some increased fatigue and mild dyspnea. He states his cough is dry. He's had no vomiting or diarrhea. He was tested as an outpatient for coronavirus yesterday he does not have these results yet. He's overall feeling unwell. He has history of CAD status post stenting. No chest pain. No history of heart failure. He is a type II diabetic. - Related Data Home Medications Medication Instructions Recorded Confirmed Isosorbide Mononitrate ER [Imdur] 30 mg PO DAILY 08/29/16 07/30/20 Latanoprost [Xalatan 0.005%] 1 drop BOTH EYES HS 08/29/16 07/30/20 Niacin 500 mg PO BID 08/29/16 07/30/20 amLODIPine [Norvasc] 5 mg PO DAILY 08/29/16 07/30/20 metFORMIN HCL 1,000 mg PO BID 08/29/16 07/30/20 Amiodarone [Cordarone] 200 mg PO DAILY 07/30/20 07/30/20 Apixaban [Eliquis] 5 mg PO BID 07/30/20 07/30/20 Metoprolol Tartrate [Lopressor] 25 mg PO BID 07/30/20 07/30/20 Nr-1 1 tab PO DAILY 07/30/20 07/30/20 Pantoprazole [Protonix] 40 mg PO DAILY 07/30/20 07/30/20 Pravastatin Sodium [Pravachol] 20 mg PO HS 07/30/20 07/30/20 Allergies Allergy/AdvReac Type Severity Reaction Status Date / Time No Known Allergies Allergy Verified 07/30/20 13:33 Review of Systems ROS Statement: Those systems with pertinent positive or pertinent negative responses have been documented in the HPI. ROS Other: All systems not noted in ROS Statement are negative. Past Medical History Past Medical History: Coronary Artery Disease (CAD), Chest Pain / Angina, Diabetes Mellitus, Eye Disorder, GERD/Reflux, Hyperlipidemia, Hypertension, Osteoarthritis (OA) Additional Past Medical History / Comment(s): NIDDM type II, macular de generation and cataracts bilaterally, arthritis in shoulders and spine, low back pain on occasion, DJD. History of Any Multi-Drug Resistant Organisms: None Reported Past Surgical History: Heart Catheterization, Heart Catheterization With Stent, Orthopedic Surgery, Tonsillectomy Additional Past Surgical History / Comment(s): cardiac caths with stents-last time stented was 2003, 2011 cardiac cath tx medically, L hand finger ganglion cyst removal, R shoulder spurs removed, R patellar fx with surgery. Past Anesthesia/Blood Transfusion Reactions: Postoperative Nausea & Vomiting (PONV) Date of Last Stent Placement:: 2003 Past Psychological History: No Psychological Hx Reported Smoking Status: Never smoker Past Alcohol Use History: None Reported Past Drug Use History: None Reported - Past Family History Father Family Medical History: Cancer, Coronary Artery Disease (CAD), Diabetes Mellitus Additional Family Medical History / Comment(s): Father had testicular cancer. He had heart problems and of this at the age of 76yrs. Mother Family Medical History: Coronary Artery Disease (CAD), Myocardial Infarction ([place]) Additional Family Medical History / Comment(s): Mother at the age of 39yrs from a [place]. Brother(s) Family Medical History: Cancer Additional Family Medical History / Comment(s): Brother had prostate cancer. General Exam Limitations: no limitations General appearance: alert, in no apparent distress Head exam: Present: atraumatic, normocephalic Eye exam: Present: normal appearance, PERRL ENT exam: Present: normal exam Neck exam: Present: normal inspection. Absent: tenderness, meningismus Respiratory exam: Present: rhonchi (Trace rhonchi). Absent: respiratory distress Cardiovascular Exam: Present: regular rate, normal rhythm GI/Abdominal exam: Present: soft. Absent: distended, tenderness Extremities exam: Present: normal inspection, normal capillary refill. Absent: pedal edema, calf tenderness Back exam: Present: normal inspection Neurological exam: Present: alert, oriented X3, CN II-XII intact. Absent: motor sensory deficit Psychiatric exam: Present: normal affect, normal mood Skin exam: Present: warm, dry, intact. Absent: cyanosis, diaphoretic Course Vital Signs 07/30/20 07/30/20 11:51 13:59 Temperature 97.9 F 98.8 F Pulse Rate 73 74 Respiratory 20 18 Rate Blood Pressure 141/86 123/66 O2 Sat by Pulse 95 95 Oximetry EKG Findings - EKG Comments: EKG Findings:: EKG: Normal sinus rhythm, rate of 80, MI interval 188, QRS duration 92, QTC 442, no ST segment elevation Medical Decision Making - Medical Decision Making 75-year-old male presenting for evaluation of cough, dyspnea, fatigue for the past one week. Chest x-ray shows a large left sided pneumonia. Patient has elevated white blood cell count consistent with acute infection. Patient did have a coronavirus test which is negative. His d-dimer was elevated, CT angiography was performed which showed bilateral upper lobe pneumonia as well as a consolidation seen on chest x-ray on the left. There was concern for olivia navirus and the patient will be kept in isolation during his treatment for suspected community-acquired pneumonia. He is started on azithromycin and ceftriaxone. He has a hyponatremia 128 and a lactic acid mildly elevated 2.2. He has been placed on normal saline. Case discussed with Dr. Cedillo who will admit. - Lab Data Result diagrams: 07/30/20 12:21 07/30/20 12:21 Lab Results 07/30/20 07/30/20 07/30/20 Range/Units 12:21 12:21 12:21 WBC 16.5 H (3.8-10.6) k/uL RBC 4.18 L (4.30-5.90) m/uL Hgb 14.1 (13.0-17.5) gm/dL Hct 40.2 (39.0-53.0) % MCV 96.1 (80.0-100.0) fL MCH 33.7 (25.0-35.0) pg MCHC 35.1 (31.0-37.0) g/dL RDW 12.4 (11.5-15.5) % Plt Count 127 L (150-450) k/uL MPV 9.0 Neutrophils % 91 % Lymphocytes % 3 % Monocytes % 4 % Eosinophils % 0 % Basophils % 0 % Neutrophils # 14.9 H (1.3-7.7) k/uL Lymphocytes # 0.5 L (1.0-4.8) k/uL Monocytes # 0.7 (0-1.0) k/uL Eosinophils # 0.1 (0-0.7) k/uL Basophils # 0.1 (0-0.2) k/uL PT 11.4 (9.0-12.0) sec INR 1.1 (<1.2) APTT 28.1 (22.0-30.0) sec D-Dimer 1.84 H (<0.60) mg/L FEU Sodium 128 L (137-145) mmol/L Potassium 4.4 (3.5-5.1) mmol/L Chloride 94 L (98-107) mmol/L Carbon Dioxide 25 (22-30) mmol/L Anion Gap 9 mmol/L BUN 26 H (9-20) mg/dL Creatinine 1.06 (0.66-1.25) mg/dL Est GFR (CKD-EPI)AfAm 78 (>60 ml/min/1.73 sqM) Est GFR (CKD-EPI)NonAf 68 (>60 ml/min/1.73 sqM) Glucose 251 H (74-99) mg/dL Plasma Lactic Acid Jose R (0.7-2.0) mmol/L Calcium 8.2 L (8.4-10.2) mg/dL Magnesium 1.9 (1.6-2.3) mg/dL Total Bilirubin 1.0 (0.2-1.3) mg/dL AST 229 H (17-59) U/L ALT 170 H (4-49) U/L Alkaline Phosphatase 70 (38-126) U/L Troponin I (0.000-0.034) ng/mL NT-Pro-B Natriuret Pep pg/mL Total Protein 6.3 (6.3-8.2) g/dL Albumin 3.3 L (3.5-5.0) g/dL Coronavirus (PCR) (Not Detectd) 07/30/20 07/30/20 07/30/20 Range/Units 12:21 12:21 12:21 WBC (3.8-10.6) k/uL RBC (4.30-5.90) m/uL Hgb (13.0-17.5) gm/dL Hct (39.0-53.0) % MCV (80.0-100.0) fL MCH (25.0-35.0) pg MCHC (31.0-37.0) g/dL RDW (11.5-15.5) % Plt Count (150-450) k/uL MPV Neutrophils % % Lymphocytes % % Monocytes % % Eosinophils % % Basophils % % Neutrophils # (1.3-7.7) k/uL Lymphocytes # (1.0-4.8) k/uL Monocytes # (0-1.0) k/uL Eosinophils # (0-0.7) k/uL Basophils # (0-0.2) k/uL PT (9.0-12.0) sec INR (<1.2) APTT (22.0-30.0) sec D-Dimer (<0.60) mg/L FEU Sodium (137-145) mmol/L Potassium (3.5-5.1) mmol/L Chloride (98-107) mmol/L Carbon Dioxide (22-30) mmol/L Anion Gap mmol/L BUN (9-20) mg/dL Creatinine (0.66-1.25) mg/dL Est GFR (CKD-EPI)AfAm (>60 ml/min/1.73 sqM) Est GFR (CKD-EPI)NonAf (>60 ml/min/1.73 sqM) Glucose (74-99) mg/dL Plasma Lactic Acid Jose R 2.2 H* (0.7-2.0) mmol/L Calcium (8.4-10.2) mg/dL Magnesium (1.6-2.3) mg/dL Total Bilirubin (0.2-1.3) mg/dL AST (17-59) U/L ALT (4-49) U/L Alkaline Phosphatase (38-126) U/L Troponin I 0.022 (0.000-0.034) ng/mL NT-Pro-B Natriuret Pep 474 pg/mL Total Protein (6.3-8.2) g/dL Albumin (3.5-5.0) g/dL Coronavirus (PCR) (Not Detectd) 07/30/20 Range/Units 12:33 WBC (3.8-10.6) k/uL RBC (4.30-5.90) m/uL Hgb (13.0-17.5) gm/dL Hct (39.0-53.0) % MCV (80.0-100.0) fL MCH (25.0-35.0) pg MCHC (31.0-37.0) g/dL RDW (11.5-15.5) % Plt Count (150-450) k/uL MPV Neutrophils % % Lymphocytes % % Monocytes % % Eosinophils % % Basophils % % Neutrophils # (1.3-7.7) k/uL Lymphocytes # (1.0-4.8) k/uL Monocytes # (0-1.0) k/uL Eosinophils # (0-0.7) k/uL Basophils # (0-0.2) k/uL PT (9.0-12.0) sec INR (<1.2) APTT (22.0-30.0) sec D-Dimer (<0.60) mg/L FEU Sodium (137-145) mmol/L Potassium (3.5-5.1) mmol/L Chloride (98-107) mmol/L Carbon Dioxide (22-30) mmol/L Anion Gap mmol/L BUN (9-20) mg/dL Creatinine (0.66-1.25) mg/dL Est GFR (CKD-EPI)AfAm (>60 ml/min/1.73 sqM) Est GFR (CKD-EPI)NonAf (>60 ml/min/1.73 sqM) Glucose (74-99) mg/dL Plasma Lactic Acid Jose R (0.7-2.0) mmol/L Calcium (8.4-10.2) mg/dL Magnesium (1.6-2.3) mg/dL Total Bilirubin (0.2-1.3) mg/dL AST (17-59) U/L ALT (4-49) U/L Alkaline Phosphatase (38-126) U/L Troponin I (0.000-0.034) ng/mL NT-Pro-B Natriuret Pep pg/mL Total Protein (6.3-8.2) g/dL Albumin (3.5-5.0) g/dL Coronavirus (PCR) Not Detected (Not Detectd) Disposition Clinical Impression: Community acquired pneumonia, Hyponatremia Disposition: ADMITTED IP TO THIS HOSP Condition: Stable Is patient prescribed a controlled substance at d/c from ED?: No Referrals: Nic Yousif MD [Primary Care Provider] - 1-2 days Decision to Admit Reason: Admit from EC Decision Date: 07/30/20 Decision Time: 14:14
[2020-07-30 12:40] LABS: Basophils # (A) 0.1 k/uL (0-0.2); Basophils % (A) 0 %; Eosinophils # (A) 0.1 k/uL (0-0.7); Eosinophils % (A) 0 %; HCT 40.2 % (39.0-53.0); HGB 14.1 gm/dL (13.0-17.5); Lymphocytes # (A) 0.5 k/uL (1.0-4.8); Lymphocytes % (A) 3 %; MCH 33.7 pg (25.0-35.0); MCHC 35.1 g/dL (31.0-37.0); MCV 96.1 fL (80.0-100.0); Monocytes # (A) 0.7 k/uL (0-1.0); Monocytes % (A) 4 %; Neutrophils # (A) 14.9 k/uL (1.3-7.7); Neutrophils % (A) 91 %; Platelet Count 127 k/uL (150-450); RBC 4.18 m/uL (4.30-5.90); RDW 12.4 % (11.5-15.5); WBC 16.5 k/uL (3.8-10.6)
--- NOTE | 2020-07-30 12:46 | XR ---
EXAMINATION TYPE: XR chest 1V portable DATE OF EXAM: 07/30/2020 COMPARISON: 09/04/2018. HISTORY: Shortness of breath and cough. TECHNIQUE: Single frontal view of the chest is obtained. FINDINGS: There is a large consolidation in the left upper lung. No significant pleural effusion, or pneumothorax seen. The cardiac silhouette size is within normal limits. The osseous structures ar e intact. IMPRESSION: Large left upper lung consolidation, compatible with lobar pneumonia in the appropriate clinical setting. Consider CT for further evaluation to exclude any other underlying etiology to incl ude mass.
[2020-07-30] MEDS ORDERED: AZITHROMYCIN 500 MG in SODIUM CHLORIDE 0.9% 250 ML IVPB STA (12:47)
[2020-07-30 12:52] LABS: INR 1.1 (<1.2); Partial Thromboplastin Time 28.1 sec (22.0-30.0); Prothrombin Time 11.4 sec (9.0-12.0)
[2020-07-30 12:53] LABS: Albumin 3.3 g/dL (3.5-5.0); Calcium 8.2 mg/dL (8.4-10.2); Magnesium 1.9 mg/dL (1.6-2.3); Potassium 4.4 mmol/L (3.5-5.1); Total Protein 6.3 g/dL (6.3-8.2)
[2020-07-30 13:12] LABS: D-Dimer 1.84 mg/L FEU (<0.60)
[2020-07-30] MEDS ORDERED: SODIUM CHLORIDE 0.9% 500 ML 500 ML IV ONE (13:12)
[2020-07-30] MEDS: SODIUM CHLORIDE 0.9% 1,000 ML IV SCH ×2 (13:23→23:43)
[2020-07-30] MEDS ORDERED: NALOXONE 0.4 MG/ML 1 ML VIAL IV PRN (13:55)
[2020-07-30] MEDS ORDERED: ACETAMINOPHEN TAB 325 MG TAB PO PRN (13:55)
--- NOTE | 2020-07-30 14:08 | CT ---
EXAMINATION TYPE: CT angio chest DATE OF EXAM: 07/30/2020 1:55 PM COMPARISON: Same-day radiograph. CT 08/22/2010. HISTORY: elevated d dimer. Shortness of breath. CT DLP: 467 mGycm Automated exposure control for dose reduction was used. CONTRAST: CTA scan of the thorax is performed with IV Contrast, patient injected with 100 mL of Isovue 370, pul monary embolism protocol. MIP images are created and reviewed. FINDINGS: LUNGS: There is large left upper lobe consolidation with groundglass opacities. There is minimal invo lvement of the right upper lobe. There is no pleural effusion or pneumothorax seen. The tracheobro nchial tree is patent. MEDIASTINUM: There is satisfactory enhancement of the pulmonary artery and its branches, there is no CT evidence for pulmonary embolism. There are scattered borderline to mildly enlarged mediastinal an d left hilar lymph nodes, may be reactive. No pericardial effusion is seen. OTHER: No additional significant abnormality is seen. IMPRESSION: BILATERAL UPPER LOBE PNEUMONIA WITH LARGE CONSOLIDATION ON THE LEFT. CONSIDER COVID PNEUMONIA. NO ACUTE PE.
[2020-07-30 21:15] LABS: Glucose,Whole Blood 227 mg/dL (75-99)
[2020-07-30] MEDS: APIXABAN 5 MG TAB PO SCH (21:40)
[2020-07-30] MEDS: METOPROLOL TARTRATE 25 MG TAB PO SCH (21:40)
[2020-07-30] MEDS: metFORMIN 500 MG TAB PO SCH (21:40)
[2020-07-30] MEDS: PRAVASTATIN SODIUM 20 MG TAB PO SCH (21:40)
[2020-07-30] MEDS: NIACIN TR 500 MG CAPLET PO SCH (21:40)
[2020-07-30] MEDS: LATANOPROST 0.005% OPHTH DROPS 2.5 ML BTL BOTH EYES SCH (21:40)
[2020-07-30] MEDS: INSULIN ASPART (NovoLOG) 100 UNIT/ML VIAL SQ SCH (21:44)
--- NOTE | 2020-07-30 22:16 | P.HPIM ---
History of Present Illness H&P Date: 07/30/20 Patient is a 75-year-old male with a known history of coronary artery disease with history of stent placement, diabetes type 2 [id number], macular degeneration and cataracts bilaterally, hypertension, hyperlipidemia, GERD, osteoarthritis and paroxysmal atrial fibrillation on anticoagulation with Eliquis came to ER with complaints of cough congestion and possible COVID-19 infection. Patient was seen by his primary care physician. Patient was having subjective fevers at home. Generalized weakness and cough and dry cough. Patient was having fatigue and mild dyspnea. Denied any nausea vomiting or diarrhea. No abdominal pain. Patient was tested for COVID-19 infection but those have not been there yet. No complaints of chest pain. No dizziness or lightheadedness. Chest x-ray showed large left upper lobe consolidation., Diabetes lobar pneumonia in the appropriate clinical setting. CT angiogram of the chest bilateral upper lobe pneumonia with large consolidation on the left lower continued Covid pneumonia. Laboratory data showed WBC 16.5, hemoglobin 14.1 and platelets 127 Lymphocytes 0.5 D-dimer 1.84 Sodium 138, potassium 4.4, 94, BUN 26 and creatinine 1.06 Blood sugar is 251 Lactic acid 2.2 AST 2029 ALT 170 Troponin 0 0.22 proBNP 474 COVID-19 PCR negative. Review of Systems Constitutional: Patient denies any fever or chills . generalized weakness and fatigue Abdomen: Patient denied nausea vomiting and diarrhea and abdominal pain. Cardiovascular: Patient denies any chest pain or short of breath no palpitations. Respiratory: patient denied any cough or sputum production. No shortness of breath Neurologic: Patient denied any numbness or tingling headache. Musculoskeletal: Patient denies any complaints of joint swelling or deformity. Skin: Negative Psychiatric: Negative Endocrine: No heat or cold intolerance. No recent weight gain. Genitourinary: No dysuria or hematuria. 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 History of Any Multi-Drug Resistant Organisms: None Reported Past Surgical History: Heart Catheterization, Heart Catheterization With Stent, Orthopedic Surgery, Tonsillectomy Additional Past Surgical History / Comment(s): cardiac caths with stents-last time stented was 2011 cardiac cath tx medically, L hand finger ganglion cyst removal, R shoulder spurs removed, R patellar fx with surgery. Past Anesthesia/Blood Transfusion Reactions: Postoperative Nausea & Vomiting (PONV) Date of Last Stent Placement:: 2003 Past Psychological History: No Psychological Hx Reported Additional Psychological History / Comment(s): Pt resides with his spouse and gwen and son-in-law. He is independent. Smoking Status: Never smoker Past Alcohol Use History: None Reported Past Drug Use History: None Reported - Past Family History Father Family Medical History: Cancer, Coronary Artery Disease (CAD), Diabetes Mellitus Additional Family Medical History / Comment(s): Father had testicular cancer. He had heart problems and of this at the age of 76yrs. Mother Family Medical History: Coronary Artery Disease (CAD), Myocardial Infarction ([place]) Additional Family Medical History / Comment(s): Mother at the age of 39yrs from a [place]. Brother(s) Family Medical History: Cancer Additional Family Medical History / Comment(s): Brother had prostate cancer. Medications and Allergies Home Medications Medication Instructions Recorded Confirmed Type Isosorbide Mononitrate ER [Imdur] 30 mg PO DAILY 08/29/16 07/30/20 History Latanoprost [Xalatan 0.005%] 1 drop BOTH EYES HS 08/29/16 07/30/20 History Niacin 500 mg PO BID 08/29/16 07/30/20 History amLODIPine [Norvasc] 5 mg PO DAILY 08/29/16 07/30/20 History metFORMIN HCL 1,000 mg PO BID 08/29/16 07/30/20 History Amiodarone [Cordarone] 200 mg PO DAILY 07/30/20 07/30/20 History Apixaban [Eliquis] 5 mg PO BID 07/30/20 07/30/20 History Metoprolol Tartrate [Lopressor] 25 mg PO BID 07/30/20 07/30/20 History Nr-1 1 tab PO DAILY 07/30/20 07/30/20 History Pantoprazole [Protonix] 40 mg PO DAILY 07/30/20 07/30/20 History Pravastatin Sodium [Pravachol] 20 mg PO HS 07/30/20 07/30/20 History Terazosin [Hytrin] 10 mg PO HS 07/30/20 07/30/20 History Allergies Allergy/AdvReac Type Severity Reaction Status Date / Time No Known Allergies Allergy Verified 07/30/20 13:33 Physical Exam Vitals: Vital Signs Temp Pulse Pulse Resp BP BP Pulse Ox 07/30/20 16:30 138/68 07/30/20 16:28 98 F 68 18 94 L 07/30/20 13:59 98.8 F 74 18 123/66 95 07/30/20 11:55 18 07/30/20 11:51 97.9 F 73 20 141/86 95 Intake and Output 07/30/20 07/30/20 07/30/20 06:59 14:59 22:59 Other: Voiding Method Toilet Urinal Weight 111.13 kg 111.13 kg PHYSICAL EXAMINATION: Patient is lying in the bed comfortably, no acute distress, awake alert and oriented.. HEENT: Normocephalic. Neck is supple. Pupils reactive. Nostrils clear. Oral cavity is moist. Ears reveal no drainage. Neck reveals no JVD, carotid bruits, or thyromegaly. CHEST EXAMINATION: Trachea is central. Symmetrical expansion. Lung cho clear to auscultation and percussion. CARDIAC: Normal S1, S2 with no gallops. No murmurs ABDOMEN: Soft. Bowel sounds normal. No organomegaly. No abdominal bruits. Extremities: reveal no edema. No clubbing or cyanosis Neurologically awake, alert, oriented x3 with well-coordinated movements. No focal deficits noted Skin: No rash or skin lesions. Psychiatric: Coperative. Nonsuicidal Musculoskeletal: No joint swelling or deformity. Normal range of motion. Results CBC & Chem 7: 07/30/20 12:21 07/30/20 12:21 Labs: Abnormal Lab Results - Last 24 Hours (Table) 07/30/20 07/30/20 07/30/20 Range/Units 12:21 12:21 12:21 WBC 16.5 H (3.8-10.6) k/uL RBC 4.18 L (4.30-5.90) m/uL Plt Count 127 L (150-450) k/uL Neutrophils # 14.9 H (1.3-7.7) k/uL Lymphocytes # 0.5 L (1.0-4.8) k/uL D-Dimer 1.84 H (<0.60) mg/L FEU Sodium 128 L (137-145) mmol/L Chloride 94 L (98-107) mmol/L BUN 26 H (9-20) mg/dL Glucose 251 H (74-99) mg/dL POC Glucose (mg/dL) (75-99) mg/dL Plasma Lactic Acid Jose R (0.7-2.0) mmol/L Calcium 8.2 L (8.4-10.2) mg/dL AST 229 H (17-59) U/L ALT 170 H (4-49) U/L Albumin 3.3 L (3.5-5.0) g/dL 07/30/20 07/30/20 Range/Units 12:21 21:13 WBC (3.8-10.6) k/uL RBC (4.30-5.90) m/uL Plt Count (150-450) k/uL Neutrophils # (1.3-7.7) k/uL Lymphocytes # (1.0-4.8) k/uL D-Dimer (<0.60) mg/L FEU Sodium (137-145) mmol/L Chloride (98-107) mmol/L BUN (9-20) mg/dL Glucose (74-99) mg/dL POC Glucose (mg/dL) 227 H (75-99) mg/dL Plasma Lactic Acid Jose R 2.2 H* (0.7-2.0) mmol/L Calcium (8.4-10.2) mg/dL AST (17-59) U/L ALT (4-49) U/L Albumin (3.5-5.0) g/dL Thrombosis Risk Factor Assmnt - DVT/VTE Prophylaxis DVT/VTE Prophylaxis: Pharmacologic Prophylaxis ordered Assessment and Plan Assessment: Left upper lobe pneumonia bilateral. Rule out COVID-19 infection Sepsis secondary to pneumonia Generalized weakness and fatigue Elevated D-dimer. CTA negative for PE Hypovolemic hyponatremia Hyperglycemia with uncontrolled diabetes type 2 Mild transaminitis Coronary artery disease with history of stent placement Paroxysmal plan: Atrial fibrillation on anticoagulation with Eliquis Hypertension Hyperlipidemia Osteoarthritis DVT prophylaxis patient is already on Eliquis Patient will be continued on IV hydration and antibiotics in the form of ceftriaxone and azithromycin. Check urine Legionella antigen. COVID-19 rapid PCR is negative. Patient was given dexamethasone 6 mg daily and follow-up closely and oxygen therapy as needed. Pulmonary was consulted. Further recommendations based on clinical course. Time with Patient: Greater than 30
[2020-07-31] MEDS: SODIUM CHLORIDE 0.9% 1,000 ML IV SCH (06:24)
[2020-07-31 07:18] LABS: Glucose,Whole Blood 191 mg/dL (75-99)
[2020-07-31 07:28] LABS: Basophils % (A) 0 %; Eosinophils % (A) 0 %; HCT 37.9 % (39.0-53.0); HGB 12.3 gm/dL (13.0-17.5); Lymphocytes # (A) 0.5 k/uL (1.0-4.8); Lymphocytes % (A) 3 %; MCH 31.8 pg (25.0-35.0); MCHC 32.5 g/dL (31.0-37.0); MCV 97.8 fL (80.0-100.0); Mean Platelet Volume 9.9; Monocytes # (A) 0.6 k/uL (0-1.0); Monocytes % (A) 4 %; Neutrophils % (A) 92 %; Platelet Count 134 k/uL (150-450); RBC 3.88 m/uL (4.30-5.90); RDW 12.6 % (11.5-15.5); WBC 15.2 k/uL (3.8-10.6)
[2020-07-31] MEDS: amLODIPine 5 MG TAB PO SCH (08:19)
[2020-07-31] MEDS: INSULIN ASPART (NovoLOG) 100 UNIT/ML VIAL SQ SCH ×4 (08:19→20:50)
[2020-07-31] MEDS: APIXABAN 5 MG TAB PO SCH ×2 (08:19→20:52)
[2020-07-31] MEDS: PANTOPRAZOLE 40 MG TABLET PO SCH (08:19)
[2020-07-31] MEDS: AMIODARONE 200 MG TAB PO SCH (08:19)
[2020-07-31] MEDS: metFORMIN 500 MG TAB PO SCH ×2 (08:20→20:52)
[2020-07-31] MEDS: ISOSORBIDE MONONITRATE ER 30 MG TAB.ER.24H PO SCH (08:20)
[2020-07-31] MEDS: METOPROLOL TARTRATE 25 MG TAB PO SCH ×2 (08:20→20:52)
[2020-07-31] MEDS: NIACIN TR 500 MG CAPLET PO SCH ×2 (08:21→20:52)
[2020-07-31] MEDS ORDERED: dexAMETHasone 2 MG TAB PO SCH (09:00)
[2020-07-31 11:22] LABS: Glucose,Whole Blood 143 mg/dL (75-99)
[2020-07-31 13:17] LABS: Hemoglobin A1C 6.4 % (4.0-6.0)
[2020-07-31 13:25] LABS: African American GFR (CKD) 83.8 (60.0-200.0); Anion Gap 10.5 mmol/L (4.00-12.00); C Reactive Protein 28.7 mg/dL (0.0-0.8); Calcium 8.2 mg/dL (8.7-10.3); Carbon Dioxide 23.5 mmol/L (21.6-31.8); Ferritin 3217.4 ng/mL (22.0-322.0); Non-African American GFR(CKD) 72.3 (60.0-200.0); Potassium 4.3 mmol/L (3.5-5.5)
--- NOTE | 2020-07-31 16:04 | P.CNPUL ---
History of Present Illness Consult date: 07/31/20 Reason for consult: pneumonia History of present illness: 75-year-old male patient with interrupted pleuritic left-sided chest pain she days ago in addition to that the patient was having some increased cough and congestion and mild dyspnea and fever. He was very much convinced that he had COVID 19 infection and for that reason the patient went through the drive through and underwent the testing the day before he came into the hospital and the patient tested negative. The patient was advised to come into the hospital by his children as the patient was not getting any better. The chest x-ray at a time of admission showed an extensive left upper lobe consolidation consistent with pneumonia. His the lower pneumonia most likely bacterial. Computed tomography scan of the chest also showed a left upper lobe consolidation consistent with a bacterial pneumonia. White cell count of 16.5. D-dimer is at 1.8. The renal function was within normal limits. Lactic acid was at 2.2. Troponin was at 0.0 22 and the patient's pro calcitonin level was at 0.37. LDH was 463. C-reactive protein is at 28.7. The patient was given a dose of R ocephin and Zithromax. The patient was admitted to the medical floor. On today's evaluation, the patient reported feeling better. Is on 2 L of oxygen by nasal cannula. His toes has subsided. He is afebrile. Hemodynamically stable at this point in time. Review of Systems Constitutional: Patient denies any fever or chills . generalized weakness and fatigue Abdomen: Patient denied nausea vomiting and diarrhea and abdominal pain. Cardiovascular: Patient denies any chest pain or short of breath no palpitations. Respiratory: patient denied any cough or sputum production. No shortness of breath, and the patient has a pleuritic left-sided chest pain no some minimal chest congestion and shortness of breath Neurologic: Patient denied any numbness or tingling headache. Musculoskeletal: Patient denies any complaints of joint swelling or deformity. Skin: Negative Psychiatric: Negative Endocrine: No heat or cold intolerance. No recent weight gain. Genitourinary: No dysuria or hematuria. 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 History of Any Multi-Drug Resistant Organisms: None Reported Past Surgical History: Heart Catheterization, Heart Catheterization With Stent, Orthopedic Surgery, Tonsillectomy Additional Past Surgical History / Comment(s): cardiac caths with stents-last time stented was 2011 cardiac cath tx medically, L hand finger ganglion cyst removal, R shoulder spurs removed, R patellar fx with surgery. Past Anesthesia/Blood Transfusion Reactions: Postoperative Nausea & Vomiting (PONV) Date of Last Stent Placement:: 2003 Past Psychological History: No Psychological Hx Reported Additional Psychological History / Comment(s): Pt resides with his spouse and gwen and son-in-law. He is independent. Smoking Status: Never smoker Past Alcohol Use History: None Reported Past Drug Use History: None Reported - Past Family History Father Family Medical History: Cancer, Coronary Artery Disease (CAD), Diabetes Mellitus Additional Family Medical History / Comment(s): Father had testicular cancer. He had heart problems and of this at the age of 76yrs. Mother Family Medical History: Coronary Artery Disease (CAD), Myocardial Infarction (IA) Additional Family Medical History / Comment(s): Mother at the age of 39yrs from a IA. Brother(s) Family Medical History: Cancer Additional Family Medical History / Comment(s): Brother had prostate cancer. Medications and Allergies Home Medications Medication Instructions Recorded Confirmed Type Isosorbide Mononitrate ER [Imdur] 30 mg PO DAILY 08/29/16 07/30/20 History Latanoprost [Xalatan 0.005%] 1 drop BOTH EYES HS 08/29/16 07/30/20 History Niacin 500 mg PO BID 08/29/16 07/30/20 History amLODIPine [Norvasc] 5 mg PO DAILY 08/29/16 07/30/20 History metFORMIN HCL 1,000 mg PO BID 08/29/16 07/30/20 History Amiodarone [Cordarone] 200 mg PO DAILY 07/30/20 07/30/20 History Apixaban [Eliquis] 5 mg PO BID 07/30/20 07/30/20 History Metoprolol Tartrate [Lopressor] 25 mg PO BID 07/30/20 07/30/20 History Nr-1 1 tab PO DAILY 07/30/20 07/30/20 History Pantoprazole [Protonix] 40 mg PO DAILY 07/30/20 07/30/20 History Pravastatin Sodium [Pravachol] 20 mg PO HS 07/30/20 07/30/20 History Terazosin [Hytrin] 10 mg PO HS 07/30/20 07/30/20 History Allergies Allergy/AdvReac Type Severity Reaction Status Date / Time No Known Allergies Allergy Verified 07/30/20 13:33 Physical Exam Vitals: Vital Signs Temp Pulse Resp BP Pulse Ox 07/31/20 15:08 64 16 07/31/20 12:29 97.7 F 64 16 125/71 97 07/31/20 08:00 68 20 07/31/20 06:05 98.2 F 68 20 137/65 96 07/30/20 21:00 98.8 F 64 20 135/49 96 07/30/20 16:30 138/68 07/30/20 16:28 98 F 68 18 94 L Intake and Output 07/31/20 07/31/20 07/31/20 06:59 14:59 22:59 Intake Total 600 240 Output Total 500 Balance 600 -260 Intake: Intake, IV Titration 600 Amount Sodium Chloride 0.9% 1, 600 000 ml @ 75 mls/hr IV . [id number] [facility] Rx#:[id number] Oral 240 Output: Urine 500 Other: Voiding Method Toilet Toilet Toilet Urinal Urinal Urinal # Voids 3 # Bowel Movements 1 Patient is lying in the bed comfortably, no acute distress, awake alert and oriented.. HEENT: Normocephalic. Neck is supple. Pupils reactive. Nostrils clear. Oral cavity is moist. Ears reveal no drainage. Neck reveals no JVD, carotid bruits, or thyromegaly. CHEST EXAMINATION: Trachea is central. Symmetrical expansion. Lung cho clear to auscultation and percussion. The patient is crackles over the left upper lobe medially anteriorly. CARDIAC: Normal S1, S2 with no gallops. No murmurs ABDOMEN: Soft. Bowel sounds normal. No organomegaly. No abdominal bruits. Extremities: reveal no edema. No clubbing or cyanosis Neurologically awake, alert, oriented x3 with well-coordinated movements. No focal deficits noted Skin: No rash or skin lesions. Psychiatric: Coperative. Nonsuicidal Musculoskeletal: No joint swelling or deformity. Normal range of motion. Results - Laboratory Findings CBC and BMP: 07/31/20 06:17 07/31/20 06:17 PT/INR, D-dimer PT 11.4 sec (9.0-12.0) 07/30/20 12:21 INR 1.1 (<1.2) 07/30/20 12:21 D-Dimer 1.84 mg/L FEU (<0.60) H 07/30/20 12:21 Abnormal lab findings: Abnormal Labs 07/30/20 07/30/20 07/30/20 12:21 12:21 12:21 WBC 16.5 H RBC 4.18 L Hgb Hct Plt Count 127 L Neutrophils # 14.9 H Lymphocytes # 0.5 L D-Dimer 1.84 H Sodium 128 L Chloride 94 L BUN 26 H BUN/Creatinine Ratio Glucose 251 H POC Glucose (mg/dL) Hemoglobin A1c Plasma Lactic Acid Jose R Calcium 8.2 L Ferritin AST 229 H ALT 170 H Lactate Dehydrogenase C-Reactive Protein Albumin 3.3 L Procalcitonin 07/30/20 07/30/20 07/31/20 12:21 21:13 06:17 WBC RBC Hgb Hct Plt Count Neutrophils # Lymphocytes # D-Dimer Sodium 133 L Chloride BUN 28.0 H BUN/Creatinine Ratio 28.00 H Glucose 168 H POC Glucose (mg/dL) 227 H Hemoglobin A1c Plasma Lactic Acid Jose R 2.2 H* Calcium 8.2 L Ferritin 3217.4 H AST ALT Lactate Dehydrogenase 463 H C-Reactive Protein 28.7 H Albumin Procalcitonin 07/31/20 07/31/20 07/31/20 06:17 06:17 06:17 WBC 15.2 H RBC 3.88 L Hgb 12.3 L Hct 37.9 L Plt Count 134 L Neutrophils # 14.0 H Lymphocytes # 0.5 L D-Dimer Sodium Chloride BUN BUN/Creatinine Ratio Glucose POC Glucose (mg/dL) Hemoglobin A1c 6.4 H Plasma Lactic Acid Jose R Calcium Ferritin AST ALT Lactate Dehydrogenase C-Reactive Protein Albumin Procalcitonin 0.37 H 07/31/20 07/31/20 07:16 11:20 WBC RBC Hgb Hct Plt Count Neutrophils # Lymphocytes # D-Dimer Sodium Chloride BUN BUN/Creatinine Ratio Glucose POC Glucose (mg/dL) 191 H 143 H Hemoglobin A1c Plasma Lactic Acid Jose R Calcium Ferritin AST ALT Lactate Dehydrogenase C-Reactive Protein Albumin Procalcitonin - Diagnostic Findings Chest x-ray: image reviewed CT scan - chest: image reviewed Assessment and Plan Plan: 1 left upper lobe pneumonia. The patient extensive consolidation of left upper lobe, most consistent with acute pneumonia rather than viral. In any rate, the Covid 19 testing came back negative. I favor bacterial pneumonia in this patient I'm going to cover him with a combination of Rocephin and Zithromax at this point in time 2 pleuritic left-sided chest wall pain secondary to above 3 constitutions symptoms secondary to above 4 coronary artery disease with previous coronary stenting 5 mild leukocytosis secondary to above 6 hypertension 7 hyperlipidemia 8 history of chronic atrial fibrillation the patient has been maintained on anticoagulation with Eliquis 9 mild transaminitis 10 hyponatremia, likely pneumonia induced Plan Continue IV fluids Continue Rocephin and Zithromax Check a Legionella urine antigen Check sputum Gram stain and culture Check blood culture Repeat chest x-ray in the morning Do not see a role for Decadron at this point in time Resume all medication including anticoagulation We'll continue to follow
[2020-07-31] MEDS: AZITHROMYCIN 500 MG in SODIUM CHLORIDE 0.9% 250 ML IVPB SCH (16:27)
[2020-07-31 16:43] LABS: Glucose,Whole Blood 256 mg/dL (75-99)
[2020-07-31] MEDS ORDERED: VANCOMYCIN IV PER PHARMACY 1 EACH MISC MISCELLANE PRN (19:38)
[2020-07-31 20:45] LABS: Glucose,Whole Blood 220 mg/dL (75-99)
[2020-07-31] MEDS: PRAVASTATIN SODIUM 20 MG TAB PO SCH (20:52)
[2020-07-31] MEDS: VANCOMYCIN 1,750 MG in SODIUM CHLORIDE 0.9% 500 ML 500 ML IVPB SCH (20:52)
[2020-07-31] MEDS: LATANOPROST 0.005% OPHTH DROPS 2.5 ML BTL BOTH EYES SCH (20:53)
[2020-08-01] MEDS: SODIUM CHLORIDE 0.9% 1,000 ML IV SCH ×3 (00:15→21:54)
--- NOTE | 2020-08-01 01:16 | P.PN ---
Subjective Progress Note Date: 07/31/20 Principal diagnosis: Left upper lobe pneumonia bilateral. Patient is a 75-year-old male with a known history of coronary artery disease with history of stent placement, diabetes type 2 [id number]-yqurralct, macular degeneration and cataracts bilaterally, hypertension, hyperlipidemia, GERD, osteoarthritis and paroxysmal atrial fibrillation on anticoagulation with Eliquis came to ER with complaints of cough congestion and possible COVID-19 infection. Patient was seen by his primary care physician. Patient was having subjective fevers at home. Generalized weakness and cough and dry cough. Patient was having fatigue and mild dyspnea. Denied any nausea vomiting or diarrhea. No abdominal pain. Patient was tested for COVID-19 infection but those have not been there yet. No complaints of chest pain. No dizziness or lightheadedness. Chest x-ray showed large left upper lobe consolidation., Diabetes lobar pneumonia in the appropriate clinical setting. CT angiogram of the chest bilateral upper lobe pneumonia with large consolidation on the left lower continued Covid pneumonia. Laboratory data showed WBC 16.5, hemoglobin 14.1 and platelets 127 Lymphocytes 0.5 D-dimer 1.84 Sodium 138, potassium 4.4, 94, BUN 26 and creatinine 1.06 Blood sugar is 251 Lactic acid 2.2 AST 2028 ALT 170 Troponin 0 0.22 proBNP 474 COVID-19 PCR negative. 07 31 2020 Patient is currently sitting in the chair. Currently requiring oxygen at 2 L via nasal cannula and is saturating at 97%. Patient states that he feels better today. Still having exertional dyspnea otherwise. No complaints of nausea vomiting abdominal pain or diarrhea. Patient has been afebrile. Currently being continued on dexamethasone and is also on Eliquis. Continued on antibiotics of azithromycin and ceftriaxone. Laboratory test showed WBC with slight improvement to 15.2 and hemoglobin 12.3 and platelets 134 Sodium 133 and potassium 4.3 BUN 28 and creatinine 1.0 Ferritin 3217 LDH 463 and CRP 28.7 and pro calcitonin 0.37 Urine Legionella antigen negative. Pulmonary is following. Plan current medications reviewed. Objective - Vital Signs Vital signs: Vital Signs Temp 97.7 F 07/31/20 12:29 Pulse 64 07/31/20 15:08 Resp 16 07/31/20 15:08 BP 125/71 07/31/20 12:29 Pulse Ox 97 07/31/20 12:29 Intake & Output 07/30/20 07/31/2007/31/20 18:59 06:59 18:59 Intake Total 900 240 Output Total 225 500 Balance 675 -260 Weight 111.13 kg Intake: Intake, IV Titration 900 Amount Sodium Chloride 0.9% 1, 900 000 ml @ 75 mls/hr IV . [id number] [facility] Rx#:[id number] Oral 240 Output: Urine 225 500 Other: Voiding Method Toilet Toilet Toilet Urinal Urinal Urinal # Voids 3 # Bowel Movements 1 - Exam PHYSICAL EXAMINATION: Patient is lying in the bed comfortably, no acute distress, awake alert and oriented.. HEENT: Normocephalic. Neck is supple. Pupils reactive. Nostrils clear. Oral cavity is moist. Ears reveal no drainage. Neck reveals no JVD, carotid bruits, or thyromegaly. CHEST EXAMINATION: Trachea is central. Symmetrical expansion. Lung cho clear to auscultation and percussion. CARDIAC: Normal S1, S2 with no gallops. No murmurs ABDOMEN: Soft. Bowel sounds normal. No organomegaly. No abdominal bruits. Extremities: reveal no edema. No clubbing or cyanosis Neurologically awake, alert, oriented x3 with well-coordinated movements. No focal deficits noted Skin: No rash or skin lesions. Psychiatric: Coperative. Nonsuicidal Musculoskeletal: No joint swelling or deformity. Normal range of motion. - Labs CBC & Chem 7: 07/31/20 06:17 07/31/20 06:17 Labs: Abnormal Lab Results - Last 24 Hours (Table) 07/30/20 07/31/20 07/31/20 Range/Units 21:13 06:17 06:17 WBC 15.2 H (3.8-10.6) k/uL RBC 3.88 L (4.30-5.90) m/uL Hgb 12.3 L (13.0-17.5) gm/dL Hct 37.9 L (39.0-53.0) % Plt Count 134 L (150-450) k/uL Neutrophils # 14.0 H (1.3-7.7) k/uL Lymphocytes # 0.5 L (1.0-4.8) k/uL Sodium 133 L (135-145) mmol/L BUN 28.0 H (9.0-27.0) mg/dL BUN/Creatinine Ratio 28.00 H (12.00-20.00) Ratio Glucose 168 H (70-110) mg/dL POC Glucose (mg/dL) 227 H (75-99) mg/dL Hemoglobin A1c (4.0-6.0) % Calcium 8.2 L (8.7-10.3) mg/dL Ferritin 3217.4 H (22.0-322.0) ng/mL Lactate Dehydrogenase 463 H (120-246) U/L C-Reactive Protein 28.7 H (0.0-0.8) mg/dL Procalcitonin (0.02-0.09) ng/mL 07/31/20 07/31/20 07/31/20 Range/Units 06:17 06:17 07:16 WBC (3.8-10.6) k/uL RBC (4.30-5.90) m/uL Hgb (13.0-17.5) gm/dL Hct (39.0-53.0) % Plt Count (150-450) k/uL Neutrophils # (1.3-7.7) k/uL Lymphocytes # (1.0-4.8) k/uL Sodium (135-145) mmol/L BUN (9.0-27.0) mg/dL BUN/Creatinine Ratio (12.00-20.00) Ratio Glucose (70-110) mg/dL POC Glucose (mg/dL) 191 H (75-99) mg/dL Hemoglobin A1c 6.4 H (4.0-6.0) % Calcium (8.7-10.3) mg/dL Ferritin (22.0-322.0) ng/mL Lactate Dehydrogenase (120-246) U/L C-Reactive Protein (0.0-0.8) mg/dL Procalcitonin 0.37 H (0.02-0.09) ng/mL 07/31/20 07/31/20 Range/Units 11:20 16:41 WBC (3.8-10.6) k/uL RBC (4.30-5.90) m/uL Hgb (13.0-17.5) gm/dL Hct (39.0-53.0) % Plt Count (150-450) k/uL Neutrophils # (1.3-7.7) k/uL Lymphocytes # (1.0-4.8) k/uL Sodium (135-145) mmol/L BUN (9.0-27.0) mg/dL BUN/Creatinine Ratio (12.00-20.00) Ratio Glucose (70-110) mg/dL POC Glucose (mg/dL) 143 H 256 H (75-99) mg/dL Hemoglobin A1c (4.0-6.0) % Calcium (8.7-10.3) mg/dL Ferritin (22.0-322.0) ng/mL Lactate Dehydrogenase (120-246) U/L C-Reactive Protein (0.0-0.8) mg/dL Procalcitonin (0.02-0.09) ng/mL Microbiology - Last 24 Hours (Table) 07/30/20 13:21 Blood Culture - Preliminary Blood No Growth after 24 hours Assessment and Plan Assessment: Left upper lobe pneumonia bilateral. Rule out COVID-19 infection. covid PCR -ve Sepsis secondary to pneumonia Generalized weakness and fatigue Elevated D-dimer. CTA negative for PE Hypovolemic hyponatremia Hyperglycemia with uncontrolled diabetes type 2 Mild transaminitis Coronary artery disease with history of stent placement Paroxysmal plan: Atrial fibrillation on anticoagulation with Eliquis Hypertension Hyperlipidemia Osteoarthritis DVT prophylaxis patient is already on Eliquis Patient will be continued on IV hydration and antibiotics in the form of ceftriaxone and azithromycin. negative urine Legionella antigen. COVID-19 rapid PCR is negative. Patient was given dexamethasone 6 mg daily and follow-up closely and oxygen therapy as needed. Pulmonary is following. Further recommendations based on clinical course. Time with Patient: Greater than 30
[2020-08-01 06:01] LABS: Basophils # (A) 0.1 k/uL (0-0.2); Basophils % (A) 0 %; Eosinophils % (A) 0 %; HCT 40.4 % (39.0-53.0); HGB 13.7 gm/dL (13.0-17.5); Lymphocytes % (A) 6 %; MCH 33.2 pg (25.0-35.0); MCHC 33.9 g/dL (31.0-37.0); MCV 97.9 fL (80.0-100.0); Mean Platelet Volume 8.9; Monocytes # (A) 0.8 k/uL (0-1.0); Monocytes % (A) 4 %; Neutrophils # (A) 16.1 k/uL (1.3-7.7); Neutrophils % (A) 89 %; Platelet Count 208 k/uL (150-450); RBC 4.12 m/uL (4.30-5.90); RDW 12.7 % (11.5-15.5); WBC 18.2 k/uL (3.8-10.6)
[2020-08-01 07:35] LABS: Glucose,Whole Blood 172 mg/dL (75-99)
[2020-08-01] MEDS: amLODIPine 5 MG TAB PO SCH (07:39)
[2020-08-01] MEDS: ISOSORBIDE MONONITRATE ER 30 MG TAB.ER.24H PO SCH (07:39)
[2020-08-01] MEDS: METOPROLOL TARTRATE 25 MG TAB PO SCH ×2 (07:39→21:54)
[2020-08-01] MEDS: AMIODARONE 200 MG TAB PO SCH (07:39)
[2020-08-01] MEDS: APIXABAN 5 MG TAB PO SCH ×2 (07:40→21:54)
[2020-08-01] MEDS: PANTOPRAZOLE 40 MG TABLET PO SCH (07:40)
[2020-08-01] MEDS: INSULIN ASPART (NovoLOG) 100 UNIT/ML VIAL SQ SCH ×4 (07:53→21:54)
[2020-08-01 09:31] LABS: African American GFR (CKD) 74.7 (60.0-200.0); Anion Gap 9.5 mmol/L (4.00-12.00); BUN/Creat Ratio 29.09 Ratio (12.00-20.00); Calcium 8.7 mg/dL (8.7-10.3); Carbon Dioxide 27.5 mmol/L (21.6-31.8); Non-African American GFR(CKD) 64.4 (60.0-200.0); Potassium 4.3 mmol/L (3.5-5.5)
[2020-08-01] MEDS: NIACIN TR 500 MG CAPLET PO SCH ×2 (10:16→21:55)
[2020-08-01] MEDS: AZITHROMYCIN 500 MG in SODIUM CHLORIDE 0.9% 250 ML IVPB SCH (10:17)
[2020-08-01] MEDS: metFORMIN 500 MG TAB PO SCH ×2 (10:51→21:54)
[2020-08-01] MEDS: VANCOMYCIN 1,750 MG in SODIUM CHLORIDE 0.9% 500 ML 500 ML IVPB SCH (10:54)
[2020-08-01 11:49] LABS: Glucose,Whole Blood 144 mg/dL (75-99)
--- NOTE | 2020-08-01 13:40 | P.PN ---
Subjective Progress Note Date: 08/01/20 Principal diagnosis: Left upper lobe pneumonia 75-year-old male patient with interrupted pleuritic left-sided chest pain she days ago in addition to that the patient was having some increased cough and congestion and mild dyspnea and fever. He was very much convinced that he had COVID 19 infection and for that reason the patient went through the drive through and underwent the testing the day before he came into the hospital and the patient tested negative. The patient was advised to come into the hospital by his children as the patient was not getting any better. The chest x-ray at a time of admission showed an extensive left upper lobe consolidation consistent with pneumonia. His the lower pneumonia most likely bacterial. Computed tomography scan of the chest also showed a left upper lobe consolidation consistent with a bacterial pneumonia. White cell count of 16.5. D-dimer is at 1.8. The renal function was within normal limits. Lactic acid was at 2.2. T roponin was at 0.0 22 and the patient's pro calcitonin level was at 0.37. LDH was 463. C-reactive protein is at 28.7. The patient was given a dose of Rocephin and Zithromax. The patient was admitted to the medical floor. On today's evaluation, the patient reported feeling better. Is on 2 L of oxygen by nasal cannula. His toes has subsided. He is afebrile. Hemodynamically stable at this point in time. On 08/01/2020 patient seen in follow-up on general medical surgical floor, he is calm and comfortable, sitting up on the edge of the bed, currently on room air, denies any shortness of breath, earlier she was sat 95% on 2 L, his been afebrile, hemodynamically significant stable, no altered mentation, no complete the chest pain or hemoptysis, lung sounds reveal some mild crackles in the upper lobes, no wheezing, continue pneumatic coverage includes azithromycin and Rocephin. IV fluids running at 75 ML per hour, Legionella urine antigen came back negative, COVID 19 was not detected. Objective - Vital Signs Vital signs: Vital Signs Temp 97.8 F 08/01/20 12:24 Pulse 54 L 08/01/20 12:24 Resp 20 08/01/20 08:00 BP 147/96 08/01/20 12:24 Pulse Ox 95 08/01/20 12:24 Intake & Output 07/31/20 08/01/20 08/01/20 18:59 06:59 18:59 Intake Total 240 900 360 Output Total 500 Balance -260 900 360 Intake: Intake, IV Titration 900 Amount Sodium Chloride 0.9% 1, 900 000 ml @ 75 mls/hr IV . [id number] [facility] Rx#:[id number] Oral 240 360 Output: Urine 500 Other: Voiding Method Toilet Toilet Toilet Urinal # Voids 3 2 # Bowel Movements 1 - Exam GENERAL EXAM: Alert, very pleasant, 75-year-old white male, on 2 L of oxygen with a pulse ox of 95% comfortable in no apparent distress. HEAD: Normocephalic/atraumatic. EYES: Normal reaction of pupils, equal size. Conjunctiva pink, sclera white. NOSE: Clear with pink turbinates. THROAT: No erythema or exudates. NECK: No masses, no JVD, no thyroid enlargement, no adenopathy. CHEST: No chest wall deformity. Symmetrical expansion. LUNGS: Equal air entry with minimal scattered crackles, but no wheeze, rhonchi or dullness. CVS: Regular rate and rhythm, normal S1 and S2, no gallops, no murmurs, no rubs ABDOMEN: Soft, nontender. No hepatosplenomegaly, normal bowel sounds, no guarding or rigidity. EXTREMITIES: No clubbing, no edema, no cyanosis, 2+ pulses and upper and lower extremities. MUSCULOSKELETAL: Muscle strength and tone normal. SPINE: No scoliosis or deformity SKIN: No rashes CENTRAL NERVOUS SYSTEM: Alert and oriented -3. No focal deficits, tone is normal in all 4 extremities. PSYCHIATRIC: Alert and oriented -3. Appropriate affect. Intact judgment and insight. - Labs CBC & Chem 7: 08/01/20 05:20 08/01/20 05:20 Labs: Abnormal Lab Results - Last 24 Hours (Table) 07/31/20 07/31/20 08/01/20 Range/Units 16:41 20:44 05:20 WBC 18.2 H (3.8-10.6) k/uL RBC 4.12 L (4.30-5.90) m/uL Neutrophils # 16.1 H (1.3-7.7) k/uL BUN (9.0-27.0) mg/dL BUN/Creatinine Ratio (12.00-20.00) Ratio Glucose (70-110) mg/dL POC Glucose (mg/dL) 256 H 220 H (75-99) mg/dL 08/01/20 08/01/20 08/01/20 Range/Units 05:20 07:33 11:46 WBC (3.8-10.6) k/uL RBC (4.30-5.90) m/uL Neutrophils # (1.3-7.7) k/uL BUN 32.0 H (9.0-27.0) mg/dL BUN/Creatinine Ratio 29.09 H (12.00-20.00) Ratio Glucose 172 H (70-110) mg/dL POC Glucose (mg/dL) 172 H 144 H (75-99) mg/dL Microbiology - Last 24 Hours (Table) 07/30/20 13:21 Blood Culture Gram Stain - Preliminary Blood Blood Culture - Preliminary Coagulase Negative Staph 07/30/20 13:21 Blood Culture - Final Blood Assessment and Plan Plan: Assessment: 1 left upper lobe pneumonia. The patient extensive consolidation of left upper lobe, most consistent with acute pneumonia rather than viral. In any rate, the Covid 19 testing came back negative. I favor bacterial pneumonia in this patient I'm going to cover him with a combination of Rocephin and Zithromax at this point in time 2 pleuritic left-sided chest wall pain secondary to above 3 constitutions symptoms secondary to above 4 coronary artery disease with previous coronary stenting 5 mild leukocytosis secondary to above 6 hypertension 7 hyperlipidemia 8 history of chronic atrial fibrillation the patient has been maintained on anticoagulation with Eliquis 9 mild transaminitis 10 hyponatremia, likely pneumonia induced, resolved Plan: Patient is improving, no worsening shortness of breath, afebrile, he is on room air, continue current antibiotic coverage with azithromycin and Rocephin, no acute events overnight, no altered mentation, no fever or chills, repeat chest x-ray in the morning if continues to improve may consider discharge home on oral antibiotics in the next 24 hours I performed a history & physical examination of the patient and discussed their management with my nurse practitioner, Sharonda Wise. I reviewed the nurse practitioner's note and agree with the documented findings and plan of care. Lung sounds are positive for mild scattered crackles The findings and the impression was discussed with the patient. I attest to the documentation by the nurse practitioner. Time with Patient: Less than 30
[2020-08-01 17:21] LABS: Glucose,Whole Blood 179 mg/dL (75-99)
[2020-08-01 20:09] LABS: Glucose,Whole Blood 182 mg/dL (75-99)
[2020-08-01] MEDS: LATANOPROST 0.005% OPHTH DROPS 2.5 ML BTL BOTH EYES SCH (21:53)
[2020-08-01] MEDS: PRAVASTATIN SODIUM 20 MG TAB PO SCH (21:55)
--- NOTE | 2020-08-01 22:39 | P.PN ---
Subjective Patient is a 75-year-old male with a known history of coronary artery disease with history of stent placement, diabetes type 2 [id number], macular degeneration and cataracts bilaterally, hypertension, hyperlipidemia, GERD, osteoarthritis and paroxysmal atrial fibrillation on anticoagulation with Eliquis came to ER with complaints of cough congestion and possible COVID-19 infection. Patient was seen by his primary care physician. Patient was having subjective fevers at home. Generalized weakness and cough and dry cough. Patient was having fatigue and mild dyspnea. Denied any nausea vomiting or diarrhea. No abdominal pain. Patient was tested for COVID-19 infection but those have not been there yet. No complaints of chest pain. No dizziness or lightheadedness. Chest x-ray showed large left upper lobe consolidation., Diabetes lobar pneumonia in the appropriate clinical setting. CT angiogram of the chest bilateral upper lobe pneumonia with large consolidation on the left lower continued Covid pneumonia. Laboratory data showed WBC 16.5, hemoglobin 14.1 and platelets 127 Lymphocytes 0.5 D-dimer 1.84 Sodium 138, potassium 4.4, 94, BUN 26 and creatinine 1.06 Blood sugar is 251 Lactic acid 2.2 AST 9 ALT 170 Troponin 0 0.22 proBNP 474 COVID-19 PCR negative. 07 31 2020 Patient is currently sitting in the chair. Currently requiring oxygen at 2 L via nasal cannula and is saturating at 97%. Patient states that he feels better today. Still having exertional dyspnea otherwise. No complaints of nausea vomiting abdominal pain or diarrhea. Patient has been afebrile. Currently being continued on dexamethasone and is also on Eliquis. Continued on antibiotics of azithromycin and ceftriaxone. Laboratory test showed WBC with slight improvement to 15.2 and hemoglobin 12.3 and platelets 134 Sodium 133 and potassium 4.3 BUN 28 and creatinine 1.0 Ferritin 3217 LDH 463 and CRP 28.7 and pro calcitonin 0.37 Urine Legionella antigen negative. Pulmonary is following. Subjective: 08/01/2020 Patient is a pleasant 75 years old male who was admitted for left upper lobe pneumonia with CTA of the chest was negative for PE but showed left upper lobe pneumonia and ground glass opacity was some mildly enlarged mediastinal and left hilar lymphadenopathy. Currently he is been covered with antibiotics with Zithromax and ceftriaxone which looks appropriate rather than IV vancomycin which is stopped. No need for steroids. Pro calcitonin is elevated at 0.37. Patient is also on Eliquis. Also is on metformin 1000 mg. Patient is currently on room air with no significant dyspnea. His WBC is 18 K but he is on steroids. Pulmonary team of the case. Repeat chest x-ray in the morning and if he keeps improvement possible discharge in 24-48 hrs. Objective - Vital Signs Vital signs: Vital Signs Temp 97.8 F 08/01/20 12:24 Pulse 64 08/01/20 13:50 Resp 20 08/01/20 13:50 BP 147/96 08/01/20 12:24 Pulse Ox 95 08/01/20 12:24 Intake & Output 07/31/20 08/01/20 08/01/20 18:59 06:59 18:59 Intake Total 240 900 360 Output Total 500 250 Balance -260 900 110 Intake: Intake, IV Titration 900 Amount Sodium Chloride 0.9% 1, 900 000 ml @ 75 mls/hr IV . [id number] JORGE Rx#:[id number] Oral 240 360 Output: Urine 500 250 Other: Voiding Method Toilet Toilet Toilet Urinal # Voids 3 2 # Bowel Movements 1 1 - Exam GENERAL: The patient is alert and oriented x3, not in any acute distress. Well developed, well nourished. HEENT: Pupils are round and equally reacting to light. EOMI. No scleral icterus. No conjunctival pallor. Normocephalic, atraumatic. No pharyngeal erythema. No thyromegaly. CARDIOVASCULAR: S1 and S2 present. No murmurs, rubs, or gallops. PULMONARY: Chest is clear to auscultation, no wheezing or crackles. ABDOMEN: Soft, nontender, nondistended, normoactive bowel sounds. No palpable organomegaly. MUSCULOSKELETAL: No joint swelling or deformity. EXTREMITIES: No cyanosis, clubbing, or pedal edema. NEUROLOGICAL: Gross neurological examination did not reveal any focal deficits. SKIN: No rashes. no petechiae. - Labs CBC & Chem 7: 08/01/20 05:20 08/01/20 05:20 Labs: Abnormal Lab Results - Last 24 Hours (Table) 07/31/20 08/01/20 08/01/20 Range/Units 20:44 05:20 05:20 WBC 18.2 H (3.8-10.6) k/uL RBC 4.12 L (4.30-5.90) m/uL Neutrophils # 16.1 H (1.3-7.7) k/uL BUN 32.0 H (9.0-27.0) mg/dL BUN/Creatinine Ratio 29.09 H (12.00-20.00) Ratio Glucose 172 H (70-110) mg/dL POC Glucose (mg/dL) 220 H (75-99) mg/dL 08/01/20 08/01/20 08/01/20 Range/Units 07:33 11:46 17:18 WBC (3.8-10.6) k/uL RBC (4.30-5.90) m/uL Neutrophils # (1.3-7.7) k/uL BUN (9.0-27.0) mg/dL BUN/Creatinine Ratio (12.00-20.00) Ratio Glucose (70-110) mg/dL POC Glucose (mg/dL) 172 H 144 H 179 H (75-99) mg/dL Microbiology - Last 24 Hours (Table) 07/30/20 13:21 Blood Culture Gram Stain - Preliminary Blood Blood Culture - Preliminary Coagulase Negative Staph 07/30/20 13:21 Blood Culture - Final Blood Assessment and Plan Assessment: Left upper lobe pneumonia Generalized weakness and fatigue Elevated D-dimer. CTA negative for PE Hypovolemic hyponatremia Hyperglycemia with uncontrolled diabetes type 2 Mild transaminitis Coronary artery disease with history of stent placement Paroxysmal plan: Atrial fibrillation on anticoagulation with Eliquis Hypertension Hyperlipidemia Osteoarthritis Plan: This is a pleasant 75 years old male who presents with left upper lobe pneumonia. Continue with antibiotic. Continue with the Eliquis. Follow-up pulmonary consult. Repeat chest x-ray in the morning Labs and medication were reviewed.. Continue same treatment. Continue with symptomatic treatment. Resume home medication. Monitor lytes and vitals. DVT and GI prophylaxis. Further recommendationsas per clinical course of the patient DVT prophylaxis: Eliquis GI Prophylaxis: Ppi PT/OT: Pending Prognosis is guarded
[2020-08-02 07:24] LABS: Basophils # (A) 0.1 k/uL (0-0.2); Basophils % (A) 1 %; Eosinophils # (A) 0.3 k/uL (0-0.7); Eosinophils % (A) 2 %; HCT 38.3 % (39.0-53.0); HGB 13.1 gm/dL (13.0-17.5); Lymphocytes # (A) 1.3 k/uL (1.0-4.8); Lymphocytes % (A) 9 %; MCH 33.3 pg (25.0-35.0); MCHC 34.2 g/dL (31.0-37.0); MCV 97.2 fL (80.0-100.0); Mean Platelet Volume 8.7; Monocytes # (A) 0.7 k/uL (0-1.0); Monocytes % (A) 5 %; Neutrophils # (A) 11.2 k/uL (1.3-7.7); Neutrophils % (A) 81 %; Platelet Count 243 k/uL (150-450); RBC 3.94 m/uL (4.30-5.90); RDW 12.7 % (11.5-15.5); WBC 13.8 k/uL (3.8-10.6)
[2020-08-02 07:31] LABS: Glucose,Whole Blood 128 mg/dL (75-99)
[2020-08-02] MEDS: INSULIN ASPART (NovoLOG) 100 UNIT/ML VIAL SQ SCH ×4 (07:55→22:24)
[2020-08-02] MEDS: amLODIPine 5 MG TAB PO SCH (09:11)
[2020-08-02] MEDS: metFORMIN 500 MG TAB PO SCH ×2 (09:11→22:29)
[2020-08-02] MEDS: NIACIN TR 500 MG CAPLET PO SCH ×2 (09:11→22:30)
[2020-08-02] MEDS: AZITHROMYCIN 500 MG TAB PO SCH (09:11)
[2020-08-02] MEDS: PANTOPRAZOLE 40 MG TABLET PO SCH (09:11)
[2020-08-02] MEDS: AMIODARONE 200 MG TAB PO SCH (09:11)
[2020-08-02] MEDS: METOPROLOL TARTRATE 25 MG TAB PO SCH ×2 (09:11→22:30)
[2020-08-02] MEDS: APIXABAN 5 MG TAB PO SCH ×2 (09:11→22:29)
[2020-08-02] MEDS: ISOSORBIDE MONONITRATE ER 30 MG TAB.ER.24H PO SCH (09:12)
--- NOTE | 2020-08-02 10:22 | XR ---
EXAMINATION TYPE: XR chest 1V portable DATE OF EXAM: 08/02/2020 CLINICAL HISTORY: pneumonia. TECHNIQUE: Portable frontal view of the chest. COMPARISON: 07/30/2020 CTA chest and chest radiograph FINDINGS: The cardiomediastinal silhouette is within normal limits for size. Redemonstrated left upp er lobe focal airspace opacity. Mildly more confluent opacity of the right infrahilar lung versus . No pleural effusion, or pneumothorax seen. The osseous structures are intact. IMPRESSION: 1. Redemonstrated left upper lobe focal airspace opacity. 2. Right infrahilar opacity is slightly more conspicuous than 07/30/2020.
[2020-08-02 11:24] LABS: Glucose,Whole Blood 136 mg/dL (75-99)
[2020-08-02] MEDS: SODIUM CHLORIDE 0.9% 1,000 ML IV SCH (12:33)
[2020-08-02 16:55] LABS: Glucose,Whole Blood 126 mg/dL (75-99)
--- NOTE | 2020-08-02 17:32 | P.PN ---
Subjective Patient is a 75-year-old male with a known history of coronary artery disease with history of stent placement, diabetes type 2 [id number], macular degeneration and cataracts bilaterally, hypertension, hyperlipidemia, GERD, osteoarthritis and paroxysmal atrial fibrillation on anticoagulation with Eliquis came to ER with complaints of cough congestion and possible COVID-19 infection. Patient was seen by his primary care physician. Patient was having subjective fevers at home. Generalized weakness and cough and dry cough. Patient was having fatigue and mild dyspnea. Denied any nausea vomiting or diarrhea. No abdominal pain. Patient was tested for COVID-19 infection but those have not been there yet. No complaints of chest pain. No dizziness or lightheadedness. Chest x-ray showed large left upper lobe consolidation., Diabetes lobar pneumonia in the appropriate clinical setting. CT angiogram of the chest bilateral upper lobe pneumonia with large consolidation on the left lower continued Covid pneumonia. Laboratory data showed WBC 16.5, hemoglobin 14.1 and platelets 127 Lymphocytes 0.5 D-dimer 1.84 Sodium 138, potassium 4.4, 94, BUN 26 and creatinine 1.06 Blood sugar is 251 Lactic acid 2.2 AST 9 ALT 170 Troponin 0 0.22 proBNP 474 COVID-19 PCR negative. 07 31 2020 Patient is currently sitting in the chair. Currently requiring oxygen at 2 L via nasal cannula and is saturating at 97%. Patient states that he feels better today. Still having exertional dyspnea otherwise. No complaints of nausea vomiting abdominal pain or diarrhea. Patient has been afebrile. Currently being continued on dexamethasone and is also on Eliquis. Continued on antibiotics of azithromycin and ceftriaxone. Laboratory test showed WBC with slight improvement to 15.2 and hemoglobin 12.3 and platelets 134 Sodium 133 and potassium 4.3 BUN 28 and creatinine 1.0 Ferritin 3217 LDH 463 and CRP 28.7 and pro calcitonin 0.37 Urine Legionella antigen negative. Pulmonary is following. Subjective: 08/01/2020 Patient is a pleasant 75 years old male who was admitted for left upper lobe pneumonia with CTA of the chest was negative for PE but showed left upper lobe pneumonia and ground glass opacity was some mildly enlarged mediastinal and left hilar lymphadenopathy. Currently he is been covered with antibiotics with Zithromax and ceftriaxone which looks appropriate rather than IV vancomycin which is stopped. No need for steroids. Pro calcitonin is elevated at 0.37. Patient is also on Eliquis. Also is on metformin 1000 mg. Patient is currently on room air with no significant dyspnea. His WBC is 18 K but he is on steroids. Pulmonary team of the case. Repeat chest x-ray in the morning and if he keeps improvement possible discharge in 24-48 hrs. 08/02/2020 Patient was sitting in chair, not in respiratory distress, with some dyspnea. No chest pain. Patient is saturating 91-93% and 2-3 L oxygen via nasal cannula, rest of vitals is stable He has persistent leukocytosis of 13 K. This blood culture came back positive for coagulase-negative staph, most likely contamination. we Ordered a repeat blood culture. Patient remains on Zithromax and Rocephin. Also he is on Eliquis Patient is eating and drinking well, I will discontinue IV fluid. Pulmonary input is appreciated. Repeat chest x-ray in the morning Objective - Vital Signs Vital signs: Vital Signs Temp 97.8 F 08/02/20 11:27 Pulse 61 08/02/20 11:27 Resp 18 08/02/20 11:27 BP 119/72 08/02/20 11:27 Pulse Ox 93 L 08/02/20 11:27 Intake & Output 08/01/20 08/02/20 08/02/20 18:59 06:59 18:59 Intake Total 360 1675 Output Total 250 Balance 110 1675 Intake: Intake, IV Titration 925 Amount Sodium Chloride 0.9% 1, 825 000 ml @ 75 mls/hr IV . [id number] JORGE Rx#:[id number] cefTRIAXone 1 gm In 100 Sodium Chloride 0.9% 50 ml @ 100 mls/hr IVPB Q24HR JORGE Rx#:[id number] Oral 360 750 Output: Urine 250 Other: Voiding Method Toilet Toilet # Voids 2 3 # Bowel Movements 1 - Exam GENERAL: The patient is alert and oriented x3, not in any acute distress. Well developed, well nourished. HEENT: Pupils are round and equally reacting to light. EOMI. No scleral icterus. No conjunctival pallor. Normocephalic, atraumatic. No pharyngeal erythema. No thyromegaly. CARDIOVASCULAR: S1 and S2 present. No murmurs, rubs, or gallops. PULMONARY: Chest is clear to auscultation, no wheezing or crackles. ABDOMEN: Soft, nontender, nondistended, normoactive bowel sounds. No palpable organomegaly. MUSCULOSKELETAL: No joint swelling or deformity. EXTREMITIES: No cyanosis, clubbing, or pedal edema. NEUROLOGICAL: Gross neurological examination did not reveal any focal deficits. SKIN: No rashes. no petechiae. - Labs CBC & Chem 7: 08/02/20 06:46 08/01/20 05:20 Labs: Abnormal Lab Results - Last 24 Hours (Table) 08/01/20 08/01/20 08/02/20 Range/Units 17:18 20:08 06:46 WBC 13.8 H (3.8-10.6) k/uL RBC 3.94 L (4.30-5.90) m/uL Hct 38.3 L (39.0-53.0) % Neutrophils # 11.2 H (1.3-7.7) k/uL POC Glucose (mg/dL) 179 H 182 H (75-99) mg/dL 08/02/20 08/02/20 08/02/20 Range/Units 07:22 11:15 16:50 WBC (3.8-10.6) k/uL RBC (4.30-5.90) m/uL Hct (39.0-53.0) % Neutrophils # (1.3-7.7) k/uL POC Glucose (mg/dL) 128 H 136 H 126 H (75-99) mg/dL Assessment and Plan Assessment: Left upper lobe pneumonia Generalized weakness and fatigue Elevated D-dimer. CTA negative for PE Hypovolemic hyponatremia Hyperglycemia with uncontrolled diabetes type 2 Mild transaminitis Coronary artery disease with history of stent placement Paroxysmal plan: Atrial fibrillation on anticoagulation with Eliquis Hypertension Hyperlipidemia Osteoarthritis Plan: This is a pleasant 75 years old male who presents with left upper lobe pneumonia. Continue with antibiotic. Continue with the Eliquis. Follow-up pulmonary consult. Repeat chest x-ray in the morning Labs and medication were reviewed.. Continue same treatment. Continue with symptomatic treatment. Resume home medication. Monitor lytes and vitals. DVT and GI prophylaxis. Further recommendationsas per clinical course of the patient DVT prophylaxis: Eliquis GI Prophylaxis: Ppi PT/OT: Pending Prognosis is guarded
--- NOTE | 2020-08-02 18:10 | P.PN ---
Subjective Progress Note Date: 08/02/20 Principal diagnosis: Left upper lobe pneumonia 75-year-old male patient with interrupted pleuritic left-sided chest pain she days ago in addition to that the patient was having some increased cough and congestion and mild dyspnea and fever. He was very much convinced that he had COVID 19 infection and for that reason the patient went through the drive through and underwent the testing the day before he came into the hospital and the patient tested negative. The patient was advised to come into the hospital by his children as the patient was not getting any better. The chest x-ray at a time of admission showed an extensive left upper lobe consolidation consistent with pneumonia. His the lower pneumonia most likely bacterial. Computed tomography scan of the chest also showed a left upper lobe consolidation consistent with a bacterial pneumonia. White cell count of 16.5. D-dimer is at 1.8. The renal function was within normal limits. Lactic acid was at 2.2. T roponin was at 0.0 22 and the patient's pro calcitonin level was at 0.37. LDH was 463. C-reactive protein is at 28.7. The patient was given a dose of Rocephin and Zithromax. The patient was admitted to the medical floor. On today's evaluation, the patient reported feeling better. Is on 2 L of oxygen by nasal cannula. His toes has subsided. He is afebrile. Hemodynamically stable at this point in time. On 08/01/2020 patient seen in follow-up on general medical surgical floor, he is calm and comfortable, sitting up on the edge of the bed, currently on room air, denies any shortness of breath, earlier she was sat 95% on 2 L, his been afebrile, hemodynamically significant stable, no altered mentation, no complete the chest pain or hemoptysis, lung sounds reveal some mild crackles in the upper lobes, no wheezing, continue pneumatic coverage includes azithromycin and Rocephin. IV fluids running at 75 ML per hour, Legionella urine antigen came back negative, COVID 19 was not detected. On 08/02/2020 patient seen in follow-up on medical surgical floor, he is currently at 3 L of oxygen pulse ox is 93%, calm and comfortable, denies any worsening symptoms, follow-up chest x-ray today shows a left upper lobe focal airspace opacity, and right infrahilar opacity slightly more conspicuous than on the previous chest x-ray. Vital signs have been stable, has been afebrile. No chest pain, no hemoptysis. Today's labs have been reviewed, showing improving leukocytosis, with a white blood cell, 13.8, hemoglobin is 13.1, patient remains on azithromycin and Rocephin for antibiotic coverage, Objective - Vital Signs Vital signs: Vital Signs Temp 97.8 F 08/02/20 11:27 Pulse 61 08/02/20 11:27 Resp 18 08/02/20 11:27 BP 119/72 08/02/20 11:27 Pulse Ox 93 L 08/02/20 11:27 Intake & Output 08/01/20 08/02/20 08/02/20 18:59 06:59 18:59 Intake Total 360 1675 Output Total 250 Balance 110 1675 Intake: Intake, IV Titration 925 Amount Sodium Chloride 0.9% 1, 825 000 ml @ 75 mls/hr IV . [id number] JORGE Rx#:[id number] cefTRIAXone 1 gm In 100 Sodium Chloride 0.9% 50 ml @ 100 mls/hr IVPB Q24HR JORGE Rx#:[id number] Oral 360 750 Output: Urine 250 Other: Voiding Method Toilet Toilet # Voids 2 3 # Bowel Movements 1 - Exam GENERAL EXAM: Alert, very pleasant, 75-year-old white male, on 2 L of oxygen with a pulse ox of 95% comfortable in no apparent distress. HEAD: Normocephalic/atraumatic. EYES: Normal reaction of pupils, equal size. Conjunctiva pink, sclera white. NOSE: Clear with pink turbinates. THROAT: No erythema or exudates. NECK: No masses, no JVD, no thyroid enlargement, no adenopathy. CHEST: No chest wall deformity. Symmetrical expansion. LUNGS: Equal air entry with minimal scattered crackles, but no wheeze, rhonchi or dullness. CVS: Regular rate and rhythm, normal S1 and S2, no gallops, no murmurs, no rubs ABDOMEN: Soft, nontender. No hepatosplenomegaly, normal bowel sounds, no guarding or rigidity. EXTREMITIES: No clubbing, no edema, no cyanosis, 2+ pulses and upper and lower extremities. MUSCULOSKELETAL: Muscle strength and tone normal. SPINE: No scoliosis or deformity SKIN: No rashes CENTRAL NERVOUS SYSTEM: Alert and oriented -3. No focal deficits, tone is normal in all 4 extremities. PSYCHIATRIC: Alert and oriented -3. Appropriate affect. Intact judgment and insight. - Labs CBC & Chem 7: 08/02/20 06:46 08/01/20 05:20 Labs: Abnormal Lab Results - Last 24 Hours (Table) 08/01/20 08/02/20 08/02/20 Range/Units 20:08 06:46 07:22 WBC 13.8 H (3.8-10.6) k/uL RBC 3.94 L (4.30-5.90) m/uL Hct 38.3 L (39.0-53.0) % Neutrophils # 11.2 H (1.3-7.7) k/uL POC Glucose (mg/dL) 182 H 128 H (75-99) mg/dL 08/02/20 08/02/20 Range/Units 11:15 16:50 WBC (3.8-10.6) k/uL RBC (4.30-5.90) m/uL Hct (39.0-53.0) % Neutrophils # (1.3-7.7) k/uL POC Glucose (mg/dL) 136 H 126 H (75-99) mg/dL Assessment and Plan Plan: Assessment: 1 left upper lobe pneumonia. The patient extensive consolidation of left upper lobe, most consistent with acute pneumonia rather than viral. In any rate, the Covid 19 testing came back negative. I favor bacterial pneumonia in this patient I'm going to cover him with a combination of Rocephin and Zithromax at this point in time 2 pleuritic left-sided chest wall pain secondary to above 3 constitutions symptoms secondary to above 4 coronary artery disease with previous coronary stenting 5 mild leukocytosis secondary to above 6 hypertension 7 hyperlipidemia 8 history of chronic atrial fibrillation the patient has been maintained on anticoagulation with Eliquis 9 mild transaminitis 10 hyponatremia, likely pneumonia induced, resolved Plan: Continue current medical treatment, continue current antibiotics, currently on azithromycin and Rocephin, vital signs have been stable, leukocytosis is improving, no worsening symptoms of dyspnea cough or chest pain. Increase activity as tolerated, follow-up chest x-ray in the morning, if continues to improve may consider discharge home on oral antibiotics in the next 24 hours. I performed a history & physical examination of the patient and discussed their management with my nurse practitioner, Sharonda Wise. I reviewed the nurse practitioner's note and agree with the documented findings and plan of care. Lung sounds are positive for mild scattered crackles The findings and the impression was discussed with the patient. I attest to the documentation by the nurse practitioner. Time with Patient: Less than 30
[2020-08-02 19:34] LABS: Glucose,Whole Blood 131 mg/dL (75-99)
[2020-08-02] MEDS: PRAVASTATIN SODIUM 20 MG TAB PO SCH (22:30)
[2020-08-02] MEDS: LATANOPROST 0.005% OPHTH DROPS 2.5 ML BTL BOTH EYES SCH (22:34)
[2020-08-03 06:48] LABS: Basophils # (A) 0.1 k/uL (0-0.2); Basophils % (A) 1 %; Eosinophils # (A) 0.4 k/uL (0-0.7); Eosinophils % (A) 4 %; HGB 12.9 gm/dL (13.0-17.5); Lymphocytes # (A) 1.6 k/uL (1.0-4.8); Lymphocytes % (A) 13 %; MCH 33.1 pg (25.0-35.0); MCHC 33.9 g/dL (31.0-37.0); MCV 97.6 fL (80.0-100.0); Mean Platelet Volume 7.9; Monocytes # (A) 0.5 k/uL (0-1.0); Monocytes % (A) 4 %; Neutrophils # (A) 9.2 k/uL (1.3-7.7); Neutrophils % (A) 76 %; Platelet Count 257 k/uL (150-450); RBC 3.89 m/uL (4.30-5.90); RDW 12.6 % (11.5-15.5); WBC 12.1 k/uL (3.8-10.6)
[2020-08-03 07:16] LABS: Glucose,Whole Blood 128 mg/dL (75-99)
[2020-08-03] MEDS: PANTOPRAZOLE 40 MG TABLET PO SCH (07:37)
[2020-08-03] MEDS: INSULIN ASPART (NovoLOG) 100 UNIT/ML VIAL SQ SCH ×4 (07:37→20:34)
[2020-08-03] MEDS: amLODIPine 5 MG TAB PO SCH (07:38)
[2020-08-03] MEDS: AZITHROMYCIN 500 MG TAB PO SCH (07:38)
[2020-08-03] MEDS: APIXABAN 5 MG TAB PO SCH ×2 (07:38→20:34)
[2020-08-03] MEDS: AMIODARONE 200 MG TAB PO SCH (07:38)
[2020-08-03] MEDS: NIACIN TR 500 MG CAPLET PO SCH ×2 (07:39→20:34)
[2020-08-03] MEDS: metFORMIN 500 MG TAB PO SCH ×2 (07:39→20:36)
[2020-08-03] MEDS: ISOSORBIDE MONONITRATE ER 30 MG TAB.ER.24H PO SCH (07:39)
[2020-08-03] MEDS: METOPROLOL TARTRATE 25 MG TAB PO SCH ×2 (07:39→20:34)
[2020-08-03 11:32] LABS: Glucose,Whole Blood 147 mg/dL (75-99)
--- NOTE | 2020-08-03 13:06 | XR ---
EXAMINATION TYPE: XR chest 1V portable DATE OF EXAM: 08/03/2020 CLINICAL HISTORY: shortness of breath. TECHNIQUE: Portable frontal view of the chest. COMPARISON: 08/02/2020 chest radiograph FINDINGS: The cardiomediastinal silhouette is within normal limits for size. Redemonstrated left upp er lobe large focal airspace opacity. Decreased right infrahilar airspace opacity. No pleural effusio n, or pneumothorax seen. The osseous structures are intact. IMPRESSION: 1. Redemonstrated large left upper lobe focal airspace opacity. 2. Decreased right infrahilar airspace opacity versus 08/02/2020, which was likely due to atelectasis .
--- NOTE | 2020-08-03 14:11 | P.PN ---
Subjective Progress Note Date: 08/03/20 Principal diagnosis: Left upper lobe pneumonia 75-year-old male patient with interrupted pleuritic left-sided chest pain she days ago in addition to that the patient was having some increased cough and congestion and mild dyspnea and fever. He was very much convinced that he had COVID 19 infection and for that reason the patient went through the drive through and underwent the testing the day before he came into the hospital and the patient tested negative. The patient was advised to come into the hospital by his children as the patient was not getting any better. The chest x-ray at a time of admission showed an extensive left upper lobe consolidation consistent with pneumonia. His the lower pneumonia most likely bacterial. Computed tomography scan of the chest also showed a left upper lobe consolidation consistent with a bacterial pneumonia. White cell count of 16.5. D-dimer is at 1.8. The renal function was within normal limits. Lactic acid was at 2.2. T roponin was at 0.0 22 and the patient's pro calcitonin level was at 0.37. LDH was 463. C-reactive protein is at 28.7. The patient was given a dose of Rocephin and Zithromax. The patient was admitted to the medical floor. On today's evaluation, the patient reported feeling better. Is on 2 L of oxygen by nasal cannula. His toes has subsided. He is afebrile. Hemodynamically stable at this point in time. On 08/01/2020 patient seen in follow-up on general medical surgical floor, he is calm and comfortable, sitting up on the edge of the bed, currently on room air, denies any shortness of breath, earlier she was sat 95% on 2 L, his been afebrile, hemodynamically significant stable, no altered mentation, no complete the chest pain or hemoptysis, lung sounds reveal some mild crackles in the upper lobes, no wheezing, continue pneumatic coverage includes azithromycin and Rocephin. IV fluids running at 75 ML per hour, Legionella urine antigen came back negative, COVID 19 was not detected. On 08/02/2020 patient seen in follow-up on medical surgical floor, he is currently at 3 L of oxygen pulse ox is 93%, calm and comfortable, denies any worsening symptoms, follow-up chest x-ray today shows a left upper lobe focal airspace opacity, and right infrahilar opacity slightly more conspicuous than on the previous chest x-ray. Vital signs have been stable, has been afebrile. No chest pain, no hemoptysis. Today's labs have been reviewed, showing improving leukocytosis, with a white blood cell, 13.8, hemoglobin is 13.1, patient remains on azithromycin and Rocephin for antibiotic coverage, On 08/03/2020 patient seen in follow-up on the surgical medical floor. Is currently on 2 L of oxygen pulse ox of 96%, breathing comfortably, does get short of breath with exertion, but appears to be in no acute distress, no chest pain, no hemoptysis, follow-up chest x-ray has been reviewed showing large left upper lobe focal airspace opacity, and decreased right inferior hilar airspace o pacity compared to yesterday's chest x-ray. His had no acute events overnight, appears very comfortable, his been ambulating in the room, his blood culture from 07/30/2020 showed staph hominis could be a skin contamination, he has been completely asymptomatic, yesterday he had repeat blood cultures, results of which are pending, however his been on antibiotics in the form of azithromycin and Rocephin, his remains stable, has been afebrile. Objective - Vital Signs Vital signs: Vital Signs Temp 97.8 F 08/03/20 12:20 Pulse 63 08/03/20 12:20 Resp 17 08/03/20 12:20 BP 125/69 08/03/20 12:20 Pulse Ox 96 08/03/20 12:20 Intake & Output 08/02/20 08/03/20 08/03/20 18:59 06:59 18:59 Intake Total 900 590 Balance 900 590 Intake: Intake, IV Titration 900 Amount Sodium Chloride 0.9% 1, 900 000 ml @ 75 mls/hr IV . [id number] [facility] Rx#:[id number] Oral 590 Other: # Voids 2 - Exam GENERAL EXAM: Alert, very pleasant, 75-year-old white male, on 2 L of oxygen with a pulse ox of 96% comfortable in no apparent distress. HEAD: Normocephalic/atraumatic. EYES: Normal reaction of pupils, equal size. Conjunctiva pink, sclera white. NOSE: Clear with pink turbinates. THROAT: No erythema or exudates. NECK: No masses, no JVD, no thyroid enlargement, no adenopathy. CHEST: No chest wall deformity. Symmetrical expansion. LUNGS: Equal air entry with minimal scattered crackles, but no wheeze, rhonchi or dullness. CVS: Regular rate and rhythm, normal S1 and S2, no gallops, no murmurs, no rubs ABDOMEN: Soft, nontender. No hepatosplenomegaly, normal bowel sounds, no guarding or rigidity. EXTREMITIES: No clubbing, no edema, no cyanosis, 2+ pulses and upper and lower extremities. MUSCULOSKELETAL: Muscle strength and tone normal. SPINE: No scoliosis or deformity SKIN: No rashes CENTRAL NERVOUS SYSTEM: Alert and oriented -3. No focal deficits, tone is normal in all 4 extremities. PSYCHIATRIC: Alert and oriented -3. Appropriate affect. Intact judgment and insight. - Labs CBC & Chem 7: 08/03/20 06:28 08/01/20 05:20 Labs: Abnormal Lab Results - Last 24 Hours (Table) 08/02/20 08/02/20 08/03/20 Range/Units 16:50 19:33 06:28 WBC 12.1 H (3.8-10.6) k/uL RBC 3.89 L (4.30-5.90) m/uL Hgb 12.9 L (13.0-17.5) gm/dL Hct 38.0 L (39.0-53.0) % Neutrophils # 9.2 H (1.3-7.7) k/uL POC Glucose (mg/dL) 126 H 131 H (75-99) mg/dL 08/03/20 08/03/20 Range/Units 07:15 11:31 WBC (3.8-10.6) k/uL RBC (4.30-5.90) m/uL Hgb (13.0-17.5) gm/dL Hct (39.0-53.0) % Neutrophils # (1.3-7.7) k/uL POC Glucose (mg/dL) 128 H 147 H (75-99) mg/dL Microbiology - Last 24 Hours (Table) 07/30/20 13:21 Blood Culture Gram Stain - Final Blood Blood Culture - Final Staph hominis sub sp. hominis Assessment and Plan Plan: Assessment: 1 left upper lobe pneumonia. The patient extensive consolidation of left upper lobe, most consistent with acute pneumonia rather than viral. In any rate, the Covid 19 testing came back negative. I favor bacterial pneumonia in this patient I'm going to cover him with a combination of Rocephin and Zithromax at this point in time 2 pleuritic left-sided chest wall pain secondary to above 3 constitutions symptoms secondary to above 4 coronary artery disease with previous coronary stenting 5 mild leukocytosis secondary to above 6 hypertension 7 hyperlipidemia 8 history of chronic atrial fibrillation the patient has been maintained on anticoagulation with Eliquis 9 mild transaminitis 10 hyponatremia, likely pneumonia induced, resolved 11 blood culture positive for staph hominis, likely related to skin contamination Plan: Patient is doing very well, clinically stable, he has been afebrile, blood cultures were repeated yesterday, they're pending, blood culture on 07/30/2020 thought to be related to skin contamination, at any rate patient has been on antibiotics already, clinically improving, no acute events overnight, from pulmonary perspective he came to consider for discharge home today on oral antibiotics, and he will need outpatient follow-up with Dr. Martínez in the office in one week I performed a history & physical examination of the patient and discussed their management with my nurse practitioner, Sharonda Wise. I reviewed the nurse practitioner's note and agree with the documented findings and plan of care. Lung sounds are positive for mild scattered crackles The findings and the impression was discussed with the patient. I attest to the documentation by the nurse practitioner.
[2020-08-03 17:17] LABS: Glucose,Whole Blood 145 mg/dL (75-99)
--- NOTE | 2020-08-03 18:43 | P.PN ---
Subjective Patient is a 75-year-old male with a known history of coronary artery disease with history of stent placement, diabetes type 2 [id number], macular degeneration and cataracts bilaterally, hypertension, hyperlipidemia, GERD, osteoarthritis and paroxysmal atrial fibrillation on anticoagulation with Eliquis came to ER with complaints of cough congestion and possible COVID-19 infection. Patient was seen by his primary care physician. Patient was having subjective fevers at home. Generalized weakness and cough and dry cough. Patient was having fatigue and mild dyspnea. Denied any nausea vomiting or diarrhea. No abdominal pain. Patient was tested for COVID-19 infection but those have not been there yet. No complaints of chest pain. No dizziness or lightheadedness. Chest x-ray showed large left upper lobe consolidation., Diabetes lobar pneumonia in the appropriate clinical setting. CT angiogram of the chest bilateral upper lobe pneumonia with large consolidation on the left lower continued Covid pneumonia. Laboratory data showed WBC 16.5, hemoglobin 14.1 and platelets 127 Lymphocytes 0.5 D-dimer 1.84 Sodium 138, potassium 4.4, 94, BUN 26 and creatinine 1.06 Blood sugar is 251 Lactic acid 2.2 AST 9 ALT 170 Troponin 0 0.22 proBNP 474 COVID-19 PCR negative. 07 31 2020 Patient is currently sitting in the chair. Currently requiring oxygen at 2 L via nasal cannula and is saturating at 97%. Patient states that he feels better today. Still having exertional dyspnea otherwise. No complaints of nausea vomiting abdominal pain or diarrhea. Patient has been afebrile. Currently being continued on dexamethasone and is also on Eliquis. Continued on antibiotics of azithromycin and ceftriaxone. Laboratory test showed WBC with slight improvement to 15.2 and hemoglobin 12.3 and platelets 134 Sodium 133 and potassium 4.3 BUN 28 and creatinine 1.0 Ferritin 3217 LDH 463 and CRP 28.7 and pro calcitonin 0.37 Urine Legionella antigen negative. Pulmonary is following. Subjective: 08/01/2020 Patient is a pleasant 75 years old male who was admitted for left upper lobe pneumonia with CTA of the chest was negative for PE but showed left upper lobe pneumonia and ground glass opacity was some mildly enlarged mediastinal and left hilar lymphadenopathy. Currently he is been covered with antibiotics with Zithromax and ceftriaxone which looks appropriate rather than IV vancomycin which is stopped. No need for steroids. Pro calcitonin is elevated at 0.37. Patient is also on Eliquis. Also is on metformin 1000 mg. Patient is currently on room air with no significant dyspnea. His WBC is 18 K but he is on steroids. Pulmonary team of the case. Repeat chest x-ray in the morning and if he keeps improvement possible discharge in 24-48 hrs. 08/02/2020 Patient was sitting in chair, not in respiratory distress, with some dyspnea. No chest pain. Patient is saturating 91-93% and 2-3 L oxygen via nasal cannula, rest of vitals is stable He has persistent leukocytosis of 13 K. This blood culture came back positive for coagulase-negative staph, most likely contamination. we Ordered a repeat blood culture. Patient remains on Zithromax and Rocephin. Also he is on Eliquis Patient is eating and drinking well, I will discontinue IV fluid. Pulmonary input is appreciated. Repeat chest x-ray in the morning 08/03/2020 Patient is breathing easier on room air. No new complaint. His WBC still trending down to 12 K. His repeat blood culture showed no growth in 24 hours, his previous most likely contamination We will check pro calcitonin, and we'll keep improvement and possible discharge in 24-48 hours Pulmonary team already found the patient stable Objective - Vital Signs Vital signs: Vital Signs Temp 97.8 F 08/03/20 12:20 Pulse 63 08/03/20 12:20 Resp 17 08/03/20 12:20 BP 125/69 08/03/20 12:20 Pulse Ox 96 08/03/20 12:20 Intake & Output 08/02/20 08/03/20 08/03/20 18:59 06:59 18:59 Intake Total 900 590 Balance 900 590 Intake: Intake, IV Titration 900 Amount Sodium Chloride 0.9% 1, 900 000 ml @ 75 mls/hr IV . [id number] [facility] Rx#:[id number] Oral 590 Other: # Voids 2 - Exam GENERAL: The patient is alert and oriented x3, not in any acute distress. Well developed, well nourished. HEENT: Pupils are round and equally reacting to light. EOMI. No scleral icterus. No conjunctival pallor. Normocephalic, atraumatic. No pharyngeal erythema. No thyromegaly. CARDIOVASCULAR: S1 and S2 present. No murmurs, rubs, or gallops. PULMONARY: Chest is clear to auscultation, no wheezing or crackles. ABDOMEN: Soft, nontender, nondistended, normoactive bowel sounds. No palpable organomegaly. MUSCULOSKELETAL: No joint swelling or deformity. EXTREMITIES: No cyanosis, clubbing, or pedal edema. NEUROLOGICAL: Gross neurological examination did not reveal any focal deficits. SKIN: No rashes. no petechiae. - Labs CBC & Chem 7: 08/03/20 06:28 08/01/20 05:20 Labs: Abnormal Lab Results - Last 24 Hours (Table) 08/02/20 08/03/20 08/03/20 Range/Units 19:33 06:28 07:15 WBC 12.1 H (3.8-10.6) k/uL RBC 3.89 L (4.30-5.90) m/uL Hgb 12.9 L (13.0-17.5) gm/dL Hct 38.0 L (39.0-53.0) % Neutrophils # 9.2 H (1.3-7.7) k/uL POC Glucose (mg/dL) 131 H 128 H (75-99) mg/dL 08/03/20 08/03/20 Range/Units 11:31 17:16 WBC (3.8-10.6) k/uL RBC (4.30-5.90) m/uL Hgb (13.0-17.5) gm/dL Hct (39.0-53.0) % Neutrophils # (1.3-7.7) k/uL POC Glucose (mg/dL) 147 H 145 H (75-99) mg/dL Microbiology - Last 24 Hours (Table) 08/02/20 15:21 Blood Culture - Preliminary Blood No Growth after 24 hours 07/30/20 13:21 Blood Culture Gram Stain - Final Blood Blood Culture - Final Staph hominis sub sp. hominis Assessment and Plan Assessment: Left upper lobe pneumonia Generalized weakness and fatigue Elevated D-dimer. CTA negative for PE Hypovolemic hyponatremia Hyperglycemia with uncontrolled diabetes type 2 Mild transaminitis Coronary artery disease with history of stent placement Paroxysmal plan: Atrial fibrillation on anticoagulation with Eliquis Hypertension Hyperlipidemia Osteoarthritis Plan: This is a pleasant 75 years old male who presents with left upper lobe pneumonia. Continue with antibiotic. Continue with the Eliquis. Follow-up pulmonary consult. Repeat chest x-ray in the morning Labs and medication were reviewed.. Continue same treatment. Continue with symptomatic treatment. Resume home medication. Monitor lytes and vitals. DVT and GI prophylaxis. Further recommendationsas per clinical course of the patient DVT prophylaxis: Eliquis GI Prophylaxis: Ppi PT/OT: Pending Prognosis is guarded
[2020-08-03] MEDS: PRAVASTATIN SODIUM 20 MG TAB PO SCH (20:34)
[2020-08-03] MEDS: LATANOPROST 0.005% OPHTH DROPS 2.5 ML BTL BOTH EYES SCH (20:34)
[2020-08-03 20:41] LABS: Glucose,Whole Blood 184 mg/dL (75-99)
[2020-08-04 07:32] LABS: Glucose,Whole Blood 142 mg/dL (75-99)
[2020-08-04 07:32] LABS: Basophils # (A) 0.1 k/uL (0-0.2); Basophils % (A) 1 %; Eosinophils # (A) 0.4 k/uL (0-0.7); Eosinophils % (A) 3 %; HCT 39.3 % (39.0-53.0); HGB 13.3 gm/dL (13.0-17.5); Lymphocytes # (A) 1.6 k/uL (1.0-4.8); Lymphocytes % (A) 14 %; MCH 33.2 pg (25.0-35.0); MCHC 33.9 g/dL (31.0-37.0); MCV 97.8 fL (80.0-100.0); Mean Platelet Volume 7.7; Monocytes # (A) 0.5 k/uL (0-1.0); Monocytes % (A) 4 %; Neutrophils # (A) 8.6 k/uL (1.3-7.7); Neutrophils % (A) 76 %; Platelet Count 333 k/uL (150-450); RBC 4.02 m/uL (4.30-5.90); RDW 12.6 % (11.5-15.5); WBC 11.3 k/uL (3.8-10.6)
[2020-08-04] MEDS: METOPROLOL TARTRATE 25 MG TAB PO SCH ×2 (08:39→21:30)
[2020-08-04] MEDS: amLODIPine 5 MG TAB PO SCH (08:39)
[2020-08-04] MEDS: AZITHROMYCIN 500 MG TAB PO SCH (08:39)
[2020-08-04] MEDS: AMIODARONE 200 MG TAB PO SCH (08:39)
[2020-08-04] MEDS: APIXABAN 5 MG TAB PO SCH ×2 (08:40→21:30)
[2020-08-04] MEDS: metFORMIN 500 MG TAB PO SCH ×2 (08:40→21:31)
[2020-08-04] MEDS: INSULIN ASPART (NovoLOG) 100 UNIT/ML VIAL SQ SCH ×4 (08:40→21:31)
[2020-08-04] MEDS: PANTOPRAZOLE 40 MG TABLET PO SCH (08:41)
[2020-08-04] MEDS: ISOSORBIDE MONONITRATE ER 30 MG TAB.ER.24H PO SCH (08:41)
[2020-08-04] MEDS: NIACIN TR 500 MG CAPLET PO SCH ×2 (08:42→21:54)
[2020-08-04 11:29] LABS: Glucose,Whole Blood 147 mg/dL (75-99)
[2020-08-04 17:01] LABS: Glucose,Whole Blood 121 mg/dL (75-99)
--- NOTE | 2020-08-04 18:35 | P.PN ---
Subjective Patient is a 75-year-old male with a known history of coronary artery disease with history of stent placement, diabetes type 2 [id number], macular degeneration and cataracts bilaterally, hypertension, hyperlipidemia, GERD, osteoarthritis and paroxysmal atrial fibrillation on anticoagulation with Eliquis came to ER with complaints of cough congestion and possible COVID-19 infection. Patient was seen by his primary care physician. Patient was having subjective fevers at home. Generalized weakness and cough and dry cough. Patient was having fatigue and mild dyspnea. Denied any nausea vomiting or diarrhea. No abdominal pain. Patient was tested for COVID-19 infection but those have not been there yet. No complaints of chest pain. No dizziness or lightheadedness. Chest x-ray showed large left upper lobe consolidation., Diabetes lobar pneumonia in the appropriate clinical setting. CT angiogram of the chest bilateral upper lobe pneumonia with large consolidation on the left lower continued Covid pneumonia. Laboratory data showed WBC 16.5, hemoglobin 14.1 and platelets 127 Lymphocytes 0.5 D-dimer 1.84 Sodium 138, potassium 4.4, 94, BUN 26 and creatinine 1.06 Blood sugar is 251 Lactic acid 2.2 AST 9 ALT 170 Troponin 0 0.22 proBNP 474 COVID-19 PCR negative. 07 31 2020 Patient is currently sitting in the chair. Currently requiring oxygen at 2 L via nasal cannula and is saturating at 97%. Patient states that he feels better today. Still having exertional dyspnea otherwise. No complaints of nausea vomiting abdominal pain or diarrhea. Patient has been afebrile. Currently being continued on dexamethasone and is also on Eliquis. Continued on antibiotics of azithromycin and ceftriaxone. Laboratory test showed WBC with slight improvement to 15.2 and hemoglobin 12.3 and platelets 134 Sodium 133 and potassium 4.3 BUN 28 and creatinine 1.0 Ferritin 3217 LDH 463 and CRP 28.7 and pro calcitonin 0.37 Urine Legionella antigen negative. Pulmonary is following. Subjective: 08/01/2020 Patient is a pleasant 75 years old male who was admitted for left upper lobe pneumonia with CTA of the chest was negative for PE but showed left upper lobe pneumonia and ground glass opacity was some mildly enlarged mediastinal and left hilar lymphadenopathy. Currently he is been covered with antibiotics with Zithromax and ceftriaxone which looks appropriate rather than IV vancomycin which is stopped. No need for steroids. Pro calcitonin is elevated at 0.37. Patient is also on Eliquis. Also is on metformin 1000 mg. Patient is currently on room air with no significant dyspnea. His WBC is 18 K but he is on steroids. Pulmonary team of the case. Repeat chest x-ray in the morning and if he keeps improvement possible discharge in 24-48 hrs. 08/02/2020 Patient was sitting in chair, not in respiratory distress, with some dyspnea. No chest pain. Patient is saturating 91-93% and 2-3 L oxygen via nasal cannula, rest of vitals is stable He has persistent leukocytosis of 13 K. This blood culture came back positive for coagulase-negative staph, most likely contamination. we Ordered a repeat blood culture. Patient remains on Zithromax and Rocephin. Also he is on Eliquis Patient is eating and drinking well, I will discontinue IV fluid. Pulmonary input is appreciated. Repeat chest x-ray in the morning 08/03/2020 Patient is breathing easier on room air. No new complaint. His WBC still trending down to 12 K. His repeat blood culture showed no growth in 24 hours, his previous most likely contamination We will check pro calcitonin, and we'll keep improvement and possible discharge in 24-48 hours Pulmonary team already found the patient stable 08/04/2020 Patient breathing is improving, he is in room air. WBC is down to 11.3 K. Pro calcitonin is also improving and trending down. Repeat Blood culture showing no growth after 48 hours Possible discharge in 24-48 hours Objective - Vital Signs Vital signs: Vital Signs Temp 97.9 F 08/04/20 16:55 Pulse 59 L 08/04/20 16:55 Resp 20 08/04/20 16:55 BP 130/68 08/04/20 16:55 Pulse Ox 98 08/04/20 16:55 Intake & Output 08/03/20 08/04/20 08/04/20 18:59 06:59 18:59 Intake Total 50 500 240 Output Total 850 Balance 50 500 -610 Intake: Intake, IV Titration 50 Amount cefTRIAXone 1 gm In 50 Sodium Chloride 0.9% 50 ml @ 100 mls/hr IVPB Q24HR [facility] Rx#:[id number] Oral 500 240 Output: Urine 850 Other: Voiding Method Toilet Toilet # Voids 3 5 5 - Exam GENERAL: The patient is alert and oriented x3, not in any acute distress. Well developed, well nourished. HEENT: Pupils are round and equally reacting to light. EOMI. No scleral icterus. No conjunctival pallor. Normocephalic, atraumatic. No pharyngeal erythema. No thyromegaly. CARDIOVASCULAR: S1 and S2 present. No murmurs, rubs, or gallops. PULMONARY: Chest is clear to auscultation, no wheezing or crackles. ABDOMEN: Soft, nontender, nondistended, normoactive bowel sounds. No palpable organomegaly. MUSCULOSKELETAL: No joint swelling or deformity. EXTREMITIES: No cyanosis, clubbing, or pedal edema. NEUROLOGICAL: Gross neurological examination did not reveal any focal deficits. SKIN: No rashes. no petechiae. - Labs CBC & Chem 7: 08/04/20 07:13 08/01/20 05:20 Labs: Abnormal Lab Results - Last 24 Hours (Table) 08/03/20 08/03/20 08/04/20 Range/Units 06:28 20:30 07:13 WBC 11.3 H (3.8-10.6) k/uL RBC 4.02 L (4.30-5.90) m/uL Neutrophils # 8.6 H (1.3-7.7) k/uL POC Glucose (mg/dL) 184 H (75-99) mg/dL Procalcitonin 0.13 H (0.02-0.09) ng/mL 08/04/20 08/04/20 08/04/20 Range/Units 07:30 11:27 16:59 WBC (3.8-10.6) k/uL RBC (4.30-5.90) m/uL Neutrophils # (1.3-7.7) k/uL POC Glucose (mg/dL) 142 H 147 H 121 H (75-99) mg/dL Procalcitonin (0.02-0.09) ng/mL Microbiology - Last 24 Hours (Table) 08/02/20 15:21 Blood Culture - Preliminary Blood No Growth after 48 hours Assessment and Plan Assessment: Left upper lobe pneumonia Generalized weakness and fatigue Elevated D-dimer. CTA negative for PE Hypovolemic hyponatremia Hyperglycemia with uncontrolled diabetes type 2 Mild transaminitis Coronary artery disease with history of stent placement Paroxysmal plan: Atrial fibrillation on anticoagulation with Eliquis Hypertension Hyperlipidemia Osteoarthritis Plan: This is a pleasant 75 years old male who presents with left upper lobe pneumonia. Continue with antibiotic. Continue with the Eliquis. Follow-up pulmonary consult. Repeat chest x-ray in the morning Labs and medication were reviewed.. Continue same treatment. Continue with symptomatic treatment. Resume home medication. Monitor lytes and vitals. DVT and GI prophylaxis. Further recommendationsas per clinical course of the patient DVT prophylaxis: Eliquis GI Prophylaxis: Ppi PT/OT: Pending Prognosis is guarded
[2020-08-04 21:19] LABS: Glucose,Whole Blood 171 mg/dL (75-99)
[2020-08-04] MEDS: LATANOPROST 0.005% OPHTH DROPS 2.5 ML BTL BOTH EYES SCH (21:30)
[2020-08-04] MEDS: PRAVASTATIN SODIUM 20 MG TAB PO SCH (21:54)
[2020-08-05 07:43] LABS: Glucose,Whole Blood 134 mg/dL (75-99)
[2020-08-05] MEDS: NIACIN TR 500 MG CAPLET PO SCH (08:07)
[2020-08-05] MEDS: metFORMIN 500 MG TAB PO SCH (08:07)
[2020-08-05] MEDS: INSULIN ASPART (NovoLOG) 100 UNIT/ML VIAL SQ SCH (08:08)
[2020-08-05] MEDS: PANTOPRAZOLE 40 MG TABLET PO SCH (08:08)
[2020-08-05] MEDS: METOPROLOL TARTRATE 25 MG TAB PO SCH (08:08)
[2020-08-05] MEDS: amLODIPine 5 MG TAB PO SCH (08:08)
[2020-08-05] MEDS: AMIODARONE 200 MG TAB PO SCH (08:08)
[2020-08-05] MEDS: AZITHROMYCIN 500 MG TAB PO SCH (08:08)
[2020-08-05] MEDS: ISOSORBIDE MONONITRATE ER 30 MG TAB.ER.24H PO SCH (08:08)
[2020-08-05] MEDS: APIXABAN 5 MG TAB PO SCH (08:08)
[2020-08-05 08:59] VITALS: BP 121/67; PULSE 55; RESP 16; TEMP 97.9
[2020-08-05 11:43] LABS: Glucose,Whole Blood 97 mg/dL (75-99)
[2020-08-05 14:07] VITALS: BMI 33.2
--- NOTE | 2020-08-06 08:16 | P.DS ---
Providers Date of admission: 07/30/20 13:55 Attending physician: Ashley Cedillo Consults: 07/30/20 18:00 Consult Physician Stat Consulting Provider: Lala Martínez Consult Reason/Comments: rule out covid Do you want consulting provider notified?: Yes, Notify in am Primary care physician: Nic Yousif Hospital Course: Diagnoses: Left upper lobe pneumonia Generalized weakness and fatigue Elevated D-dimer. CTA negative for PE Staph hominis and blood culture, most likely contamination. Repeat blood cultures negative. Patient is asymptomatic and pro-calcitonin is improving Hypovolemic hyponatremia Hyperglycemia with uncontrolled diabetes type 2 Mild transaminitis Coronary artery disease with history of stent placement Paroxysmal plan: Atrial fibrillation on anticoagulation with Eliquis Hypertension Hyperlipidemia Osteoarthritis Hospital course: Patient is a 75-year-old male with a known history of coronary artery disease with history of stent placement, diabetes type 2 iys-otmwsom-hugkukyvs, macular degeneration and cataracts bilaterally, hypertension, hyperlipidemia, GERD, osteoarthritis and paroxysmal atrial fibrillation on anticoagulation with Eliquis came to ER with complaints of cough congestion. Chest x-ray showed large left upper lobe consolidation. CT angiogram of the chest: Bilateral upper lobe pneumonia with large consolidation on the left COVID-19 PCR negative. Patient has been evaluated by belt turner, he was treated with Zithromax and ceftriaxone. Patient showed interval improvement and he was respiratory symptoms improved, inferior to discharge he was on room air for more than 48 hours. Pro calcitonin was trending down to 0.37 to 0.13. Patient felt his back to normal self and he agrees to be discharged 2 days ago. Patient repeat blood culture was monitored over the last 2 days and it remained negative with no growth .No new symptoms upon discharge Patient was cleared for discharge by pulmonary service Problems and management plan were discussed with the patient and he verbalized understanding and acceptance Patient was found stable and can be discharged home however he needs follow-up as an outpatient. Patient was instructed to follow up with PCP within one week and patient agrees with the appointments made for him with PCP Dr. Yousif on 08/10 and his belt turner Dr. Martínez on 08/30 . Patient states he will follow-up. Risks including but not limited to cancer are explained for him and he verbalized understanding and acceptance to follow up Gen: patient is a AAOx3, no distress CVS: S1-S2, RRR, no murmur Lungs: B/L CTA, no wheezing Abdomen: soft, no distention, no tenderness, positive bowel sounds Extremity: no leg edema or induration Time spent more than 35 minutes Patient Condition at Discharge: Stable Plan - Discharge Summary New Discharge Prescriptions: New Cefuroxime Axetil [Ceftin] 500 mg PO BID 7 Days #14 tab Azithromycin [Zithromax] 500 mg PO DAILY #3 tab Continue Latanoprost [Xalatan 0.005%] 1 drop BOTH EYES HS Niacin 500 mg PO BID metFORMIN HCL 1,000 mg PO BID amLODIPine [Norvasc] 5 mg PO DAILY Isosorbide Mononitrate ER [Imdur] 30 mg PO DAILY Pravastatin Sodium [Pravachol] 20 mg PO HS Metoprolol Tartrate [Lopressor] 25 mg PO BID Amiodarone [Cordarone] 200 mg PO DAILY Apixaban [Eliquis] 5 mg PO BID Pantoprazole [Protonix] 40 mg PO DAILY Nr-1 1 tab PO DAILY Discontinued Terazosin [Hytrin] 10 mg PO HS Discharge Medication List Isosorbide Mononitrate ER [Imdur] 30 mg PO DAILY 08/29/16 [History] Latanoprost [Xalatan 0.005%] 1 drop BOTH EYES HS 08/29/16 [History] Niacin 500 mg PO BID 08/29/16 [History] amLODIPine [Norvasc] 5 mg PO DAILY 08/29/16 [History] metFORMIN HCL 1,000 mg PO BID 08/29/16 [History] Amiodarone [Cordarone] 200 mg PO DAILY 07/30/20 [History] Apixaban [Eliquis] 5 mg PO BID 07/30/20 [History] Metoprolol Tartrate [Lopressor] 25 mg PO BID 07/30/20 [History] Nr-1 1 tab PO DAILY 07/30/20 [History] Pantoprazole [Protonix] 40 mg PO DAILY 07/30/20 [History] Pravastatin Sodium [Pravachol] 20 mg PO HS 07/30/20 [History] Azithromycin [Zithromax] 500 mg PO DAILY #3 tab 08/05/20 [Rx] Cefuroxime Axetil [Ceftin] 500 mg PO BID 7 Days #14 tab 08/05/20 [Rx] Follow up Appointment(s)/Referral(s): Nic Yousif MD [Primary Care Provider] - 08/10/20 11:20 am Lala Martínez MD [STAFF PHYSICIAN] - 08/30/20 9:45 am Patient Instructions/Handouts: Cefuroxime (By mouth), Azithromycin (By mouth), Pneumonia (DC) Discharge Disposition: HOME SELF-CARE
--- NOTE | 2020-08-08 09:17 | CDI ---
Documentation Clarification Form Date: 08/08/2020 09:05:00 AM From: Roxy Peacock Phone: If you have a question about this query, please contact [employer] at [phone] between 8am and 5pm. Admit Date: 07/30/2020 01:55:00 PM Patient Name: Elio Silverio Visit Number: [id number] Discharge Date: 08/05/2020 01:49:00 PM ATTENTION: The Clinical Documentation Specialists (CDI) and [facility] Coding Staff appreciate your assistance in clarifying documentation. Please respond to the clarification below the line at the bottom and electronically sign. The CDI & [facility] Coding staff will review the response and follow-up if needed. Please note: Queries are made part of the Legal Health Record. If you have any questions, please contact the author of this message via ITS. Dr. Shi E Sheet The patient presented with the bacterial pneumonia Covid negative. Per H and P and 07/31 PN Sepsis secondary to pneumonia is documented by attending and not carried through chart to D[facility]. Please clarify if patient had sepsis or was it ruled out. History/Risk Factors: Pneumonia WBC 16.5 Lactic acid: 1.5 Vitals signs on admission: 97.9 F, 73 bpm, 20 141/86, 95 RA Treatment: IV hydration, IV Ceftriazone and azithromycin. Antibiotics: Ceftriaxone and Azithromycin In your professional opinion, please clarify if patient had sepsis or was it ruled out. Condition Sepsis ruled out SIRS, without underlying infectious process Sepsis Severe Sepsis Septic Shock Other, please specify Unable to determine Identify the (suspected) organism Link or clarify if there is associated (due to/with): Organ failure Shock SIRS Criteria (2 or more of the following may indicate SIRS): -Temperature < 96.8F (36C) or > 101.0F (38.3C) -Heart Rate > 90 bpm -Respiratory Rate > 20 breaths/min or PaCO2 < 32 mmHg -White Blood Cell Count > 12,000 or < 4,000 cells/mm3 or > 10% bands -Lactate >2.0 mmol/L (>4.0 is equivalent to septic shock) no sepsis MTDD
== END 2020-08-05 13:49 | disposition home or self-care (01) | DRG 194 ==
LOC: EC 11:50 → 6NMEDSUR 13:55
PROVIDERS: ADMIT Internal Medicine; ATTEND Internal Medicine
DX: J15.9 Unspecified bacterial pneumonia (principal); E87.1 Hypo-osmolality and hyponatremia; E11.65 Type 2 diabetes mellitus with hyperglycemia; E78.5 Hyperlipidemia, unspecified; E86.1 Hypovolemia; I10 Essential (primary) hypertension; I25.10 Atherosclerotic heart disease of native coronary artery without angina pectoris; I48.0 Paroxysmal atrial fibrillation; M19.90 Unspecified osteoarthritis, unspecified site; R79.1 Abnormal coagulation profile; H35.30 Unspecified macular degeneration; E11.36 Type 2 diabetes mellitus with diabetic cataract; H26.9 Unspecified cataract; Z79.84 Long term (current) use of oral hypoglycemic drugs; Z20.828 Contact with and (suspected) exposure to other viral communicable diseases; R74.01 Elevation of levels of liver transaminase levels; Z79.01 Long term (current) use of anticoagulants; Z79.899 Other long term (current) drug therapy; Z80.42 Family history of malignant neoplasm of prostate; Z80.43 Family history of malignant neoplasm of testis; Z82.49 Family history of ischemic heart disease and other diseases of the circulatory system; Z83.3 Family history of diabetes mellitus; Z95.5 Presence of coronary angioplasty implant and graft; Z90.89 Acquired absence of other organs
CPT/HCPCS: 36415; 71045; 71275; 80048; 80053; 82728; 83036; 83605; 83615; 83735; 83880; 84145; 84484; 85025; 85379; 85610; 85730; 86140; 87040; 87077; 87186; 87449; 87502; 87635; 93005; 96365; 96366; 96368; 99285

== ENCOUNTER → 2021-08-14 | Outpatient (CLI) | payer MEDICARE ==
--- NOTE | 2021-08-14 10:23 | CT ---
EXAMINATION TYPE: CT abdomen pelvis wo con DATE OF EXAM: 08/14/2021 HISTORY: Right sided flank pain CT DLP: 1347.5 mGycm. Automated Exposure Control for Dose Reduction was Utilized. TECHNIQUE: CT scan of the abdomen and pelvis is performed without oral or IV contrast. COMPARISON: NONE FINDINGS: Within the limitations of a non-contrast study, the following observations are made. LUNG BASES: No significant abnormality is appreciated. LIVER/GB: Visualized liver is low dense consistent with diffuse fatty infiltration. PANCREAS: No significant abnormality is seen. SPLEEN: No significant abnormality is seen. ADRENALS: No significant abnormality is seen. KIDNEYS: Cortical thinning in both kidneys. No renal calculi or hydronephrosis bilaterally. No intral uminal calculi in the poorly distended bladder. BOWEL: Diverticula throughout the colon greatest in the left and sigmoid colon. No CT evidence for ac [place] diverticulitis. Normal-appearing appendix from cecum. No suspicious small or large bowel dilatati on. GENITAL ORGANS: Enlarged prostate consistent with BPH. Adjacent scattered pelvic phleboliths. LYMPH NODES: No greater than 1cm abdominal or pelvic lymph nodes are appreciated. OSSEOUS STRUCTURES: Straightening of spine with moderate multilevel spurring and disc space narrowing . Multilevel vacuum disc phenomenon. OTHER: No significant additional abnormality is seen. IMPRESSION: No renal stones or hydronephrosis is seen bilaterally. Diffuse colonic diverticulosis gre atest distally without CT evidence for acute diverticulitis. No acute findings are evident.
== END | disposition home or self-care (01) ==
LOC: RADCTMAIN 07:59
PROVIDERS: ATTEND Family Medicine
DX: K57.30 Diverticulosis of large intestine without perforation or abscess without bleeding (principal)
CPT/HCPCS: 74176

== ENCOUNTER 2022-04-05 06:12 | Day surgery (SDC) | payer MEDICARE ==
[~2022-04-05 06:12] MED LIST: SODIUM CHLORIDE 0.9% 1,000 ML IV SCH
[2022-04-05 07:06] VITALS: TEMP 97.6
[2022-04-05 07:06] LABS: Glucose,Whole Blood 126 mg/dL (70-110)
[2022-04-05] MEDS ORDERED: PROPOFOL 10 MG/ML 20 ML VIAL IV ONE (07:29)
[2022-04-05 07:59] VITALS: RESP 20
[2022-04-05] MEDS ORDERED: NITROGLYCERIN SL TABS 0.4 MG TAB SUBLINGUAL PRN (08:56)
[2022-04-05] MEDS ORDERED: PANTOPRAZOLE 40 MG TABLET PO SCH (09:00)
[2022-04-05] MEDS ORDERED: OLIVE LEAF EXTRACT PO SCH (09:00)
[2022-04-05] MEDS ORDERED: NON FORMULARY DRUG (Niacin [Niacin] 500 MG Tablet) PO SCH (09:00)
[2022-04-05] MEDS ORDERED: ISOSORBIDE MONONITRATE ER 30 MG TAB.ER.24H PO SCH (09:00)
[2022-04-05] MEDS ORDERED: ASCORBIC ACID 500 MG TAB PO SCH (09:00)
[2022-04-05] MEDS ORDERED: amLODIPine 5 MG TAB PO SCH (09:00)
[2022-04-05] MEDS ORDERED: NON FORMULARY DRUG (Magnesium [Magnesium] 250 MG Tablet) PO SCH (09:00)
[2022-04-05] MEDS ORDERED: CHOLECALCIFEROL 25 MCG (1000 IU) TABLET PO SCH (09:00)
[2022-04-05] MEDS ORDERED: NON FORMULARY DRUG (Omega-3/Dha/Epa/Fish Oil [Fish Oil 1,000 Mg Softgel] 1 EACH Capsule) PO SCH (09:00)
[2022-04-05] MEDS ORDERED: APIXABAN 5 MG TAB PO SCH (09:00)
[2022-04-05] MEDS ORDERED: AMIODARONE 200 MG TAB PO SCH (09:00)
[2022-04-05] MEDS ORDERED: NON FORMULARY DRUG (Metformin Hcl [Glucophage] 1,000 MG Tablet) PO SCH (09:00)
[2022-04-05] MEDS ORDERED: METOPROLOL TARTRATE 50 MG TAB PO SCH (09:00)
[2022-04-05 09:07] VITALS: BP 109/59; PULSE 66
--- NOTE | 2022-04-05 10:30 | PCN ---
PROCEDURE NOTE ELECTRICAL CARDIOVERSION REPORT: DATE OF SERVICE: 04/05/2022 PROCEDURE PERFORMED: Electrical cardioversion. INDICATION: Persistent atrial fibrillation in spite of pharmacological efforts. Mr. Elio Silverio is a 77-year-old gentleman with a history of CAD, prior known circumflex occlusion with preserved LV function. He developed atrial fibrillation about 3-4 weeks ago and was treated with amiodarone for about 2 weeks and brought in for the procedure. Risks, benefits, options, rationale were explained. PROCEDURE NOTE: Under the influence of fuvwh-lilcp-ksorkf intravenous anesthetic agent with the attendance of the anesthesiologist, initial shock was delivered with anterior and posterior patches of 200 joules. The patient remained in atrial fibrillation with a rate of about 80 beats per minute. A repeat shock was also given without success. This is therefore an unsuccessful electrical cardioversion. The patient is neurologically intact and hemodynamically stable. We will pursue rate control and discuss other options in the office. He will be discharged later on today if he remains stable. MMODL / IJN: [id number] /
[2022-04-05] MEDS ORDERED: PRAVASTATIN SODIUM 40 MG TAB PO SCH (21:00)
[2022-04-05] MEDS ORDERED: LATANOPROST 0.005% OPHTH DROPS 2.5 ML BTL BOTH EYES SCH (21:00)
[2022-04-05] MEDS ORDERED: TERAZOSIN HCL 10 MG PO SCH (21:00)
== END 2022-04-05 09:25 | disposition home or self-care (01) ==
LOC: CATHCVL 06:12
PROVIDERS: ATTEND Internal Medicine Interventional Cardiology
DX: I48.19 Other persistent atrial fibrillation (principal); I25.10 Atherosclerotic heart disease of native coronary artery without angina pectoris; I10 Essential (primary) hypertension; E78.00 Pure hypercholesterolemia, unspecified; E78.5 Hyperlipidemia, unspecified; E11.51 Type 2 diabetes mellitus with diabetic peripheral angiopathy without gangrene; Z20.822 Contact with and (suspected) exposure to COVID-19; I25.2 Old myocardial infarction; Z82.49 Family history of ischemic heart disease and other diseases of the circulatory system; Z79.01 Long term (current) use of anticoagulants; Z79.84 Long term (current) use of oral hypoglycemic drugs; Z79.899 Other long term (current) drug therapy
CPT/HCPCS: 92960; 87635; J2704

== ENCOUNTER → 2024-03-23 | Outpatient (CLI) | payer MEDICARE ==
--- NOTE | 2024-03-24 12:13 | XR ---
EXAMINATION TYPE: XR foot complete 3 views LT DATE OF EXAM: 03/23/2024 Comparison: None Clinical History: 79-year-old male left foot pain, M10.9 Gout Findings: Some medial soft tissue swelling at the first MTP joint with some amorphous calcifications in the sof t tissues here. Tiny type I accessory navicular. Small plantar heel spur. No acute fracture, subluxat ion, or dislocation. Impression: Some medial soft tissue swelling at the first MTP joint with some amorphous soft tissue calcification s here. Findings may reflect gout. No discrete erosions at this time.
== END | disposition home or self-care (01) ==
LOC: RADXRMAIN 13:28
PROVIDERS: ATTEND Family Medicine
DX: M79.89 Other specified soft tissue disorders (principal); M10.9 Gout, unspecified; M79.672 Pain in left foot

== ENCOUNTER → 2024-04-02 | Outpatient (CLI) | payer MEDICARE ==
--- NOTE | 2024-04-02 13:56 | XR ---
EXAMINATION TYPE: XR Hip Complete LT DATE OF EXAM: 04/02/2024 COMPARISON: NONE HISTORY: Pain TECHNIQUE: 2 views submitted FINDINGS: There is no evidence of erosive change or acute fracture. Mild to moderate arthropathy of the hip. Th ere is mild SI joint arthropathy. Vascular calcifications noted. IMPRESSION: 1. A mild to moderate hip arthropathy. No evidence of erosive changes. 2. Mild SI joint arthropathy.
== END | disposition home or self-care (01) ==
LOC: RADXRMAIN 13:28
PROVIDERS: ATTEND Orthopaedic Surgery
DX: M47.818 Spondylosis without myelopathy or radiculopathy, sacral and sacrococcygeal region (principal)
CPT/HCPCS: 73502

== ENCOUNTER → 2024-05-01 | Outpatient (CLI) | payer MEDICARE ==
--- NOTE | 2024-05-21 12:37 | MR ---
Report Patient: Elio Silverio Ordering Physician: Unknown, Unknown ID: [id number] Phone, Pager: Phone: N/A Pager: N/A : [phone] Age/Gender: 79Y, M Primary Location: N/A Procedure: MR left knee wo con Study Date: 05/01/2024 4:57:32 PM EXAMINATION TYPE: MR knee LT wo con DATE OF EXAM: 05/01/2024 COMPARISON: No radiographic correlation available HISTORY: 79-year-old male left knee pain postsurgery. TECHNIQUE: Multiplanar, multisequence imaging of the left knee is performed without IV contrast. The patient was brought back for rescanning after downtime and loss of original 04/16/2024 images. FINDINGS: ACL, PCL, and LCL complex are intact. There is edema on either side of the otherwise intact MCL. There is obliquely oriented signal at the junction of the posterior horn and body of the medial menis cus, sagittal image 26. Overall medial compartment articular cartilage volume is maintained. There is a complex multidirectional tear involving the body of the lateral meniscus, coronal image 21 . Overall lateral compartment articular volume is maintained. There is moderate irregular cartilage loss along the lateral trochlear facet and moderate thinning of lateral patellar facet articular cartilage. Afqum-nr-ewcvuwqb knee joint effusion. Multilocular component to the Garza's cyst extending superiorl y measuring 2.8 x 2.3 cm an additional leakage inferiorly. Mild muscular edema within the medial head gastrocnemius. Generalized subcutaneous soft tissue swelling. Extensor mechanism is intact with inhomogeneous signal in the quadriceps tendon suggesting tendinosis. Normal popliteal artery anatomy. Mild generalized muscle atrophy. No suspicious bone marrow replaceme nt. IMPRESSION: 1. Oblique tear at the junction of the posterior horn and body of the medial meniscus. 2. Complex multidirectional tear involving the body of the lateral meniscus. 3. Grade 1 MCL sprain. 4. Moderate patellofemoral compartmental OA particularly along the lateral facets of the patella and trochlea. 5. Vreko-gt-tgkdtkjk knee joint effusion and a small complex, leaking Garza's cyst. 6. Prominent generalized soft tissue swelling throughout and mild insertional quadriceps tendinosis.
== END | disposition home or self-care (01) ==
LOC: RADMRIMAIN 04-16 12:53
PROVIDERS: ATTEND Orthopaedic Surgery
DX: S83.242A Other tear of medial meniscus, current injury, left knee, initial encounter (principal); S83.282A Other tear of lateral meniscus, current injury, left knee, initial encounter; M17.12 Unilateral primary osteoarthritis, left knee; M25.462 Effusion, left knee

== ENCOUNTER → 2024-05-18 | Outpatient (CLI) | payer MEDICARE ==
[2024-05-18 15:28] LABS: Basophils # (A) 0.08 X 10*3/uL (0.00-0.10); Eosinophils # (A) 0.35 X 10*3/uL (0.04-0.35); Eosinophils % (A) 4.3 %; HCT 37.2 % (39.6-50.0); HGB 12.5 g/dL (13.0-17.0); Lymphocytes # (A) 2.64 X 10*3/uL (0.90-5.00); Lymphocytes % (A) 32.1 %; MCH 33.2 pg (27.0-32.0); MCHC 33.6 g/dL (32.0-37.0); MCV 98.9 FL (80.0-97.0); Mean Platelet Volume 11.4 FL (9.5-12.2); Monocytes # (A) 0.79 X 10*3/uL (0.20-1.00); Monocytes % (A) 9.6 %; NRBC Per 100 WBC 0 X 10*3/uL (0.00-0.01); Neutrophils # (A) 4.34 X 10*3/uL (1.80-7.70); Neutrophils % (A) 52.6 %; Platelet Count 195 X 10*3/uL (140-440); RBC 3.76 X 10*6/uL (4.40-5.60); RDW 12.9 % (11.5-14.5); WBC 8.23 X 10*3/uL (4.50-10.00)
[2024-05-18 15:53] LABS: Anion Gap 12.8 mmol/L (4.00-12.00); Carbon Dioxide 22.2 mmol/L (21.6-31.8); Potassium 4.4 mmol/L (3.5-5.5)
== END | disposition home or self-care (01) ==
LOC: LABWHC1 11:26
PROVIDERS: ATTEND Orthopaedic Surgery
DX: Z01.818 Encounter for other preprocedural examination
CPT/HCPCS: 36415; 80051; 85025

== ENCOUNTER 2024-06-10 05:39 | Day surgery (SDC) | payer MEDICARE ==
--- NOTE | 2024-06-09 12:29 | HP ---
HISTORY AND PHYSICAL DATE OF PROPOSED SURGERY: The surgery is scheduled for 06/10/2024. Elio Silverio is an 79-year-old patient seen with progressive left knee pain. We discussed options regarding treatment. He elected to proceed with left knee arthroscopy. Consent regarding procedure was obtained. Cardiac clearance was provided by Dr. Juan Farah. PAST MEDICAL HISTORY: Hypertension, hyperlipidemia, cardiovascular disease, mri-tjtxchp-sslrzzpxu diabetes. PAST SURGICAL HISTORY: Knee arthroscopy, shoulder arthroscopy, cardiac catheterization with stent insertion. DAILY MEDICATIONS: 1. Isosorbide. 2. Pravastatin. 3. Amiodarone. 4. Amlodipine. 5. Eliquis. 6. Metformin. 7. Metoprolol. ALLERGIES: None reported. SOCIAL HISTORY: Denies current tobacco use. PHYSICAL EVALUATION OF THE LEFT KNEE: His range of motion is 0 to 125 degrees. Mild effusion. Tenderness in medial joint line. Tenderness in lateral joint line. Positive medial Margo's. Positive lateral Margo's. Ligaments stable. Hip rotation without pain. Distal neurovascular exam intact. Radiographs of the left knee revealed moderate osteoarthritis. MRI left knee revealed medial meniscal tear, lateral meniscal tear, moderate osteoarthritis, moderate effusion, Garza cyst. IMPRESSION: 1. Internal derangement of left knee with medial and lateral meniscal tears. 2. Hypertension. 3. Hyperlipidemia. 4. Uoe-bwhrfto-yxzksjutc diabetes. 5. Cardiovascular disease. PLAN: Left knee arthroscopy with partial medial/lateral meniscectomy and debridement. MMODL / IJN: [id number] /
[2024-06-10] MEDS ORDERED: LACTATED RINGERS 1,000 ML IV SCH (05:58)
[2024-06-10] MEDS: IV FLUID CONTINUATION 1,000 ML IV ONE (06:19)
[2024-06-10 06:46] LABS: Glucose,Whole Blood 126 mg/dL (70-110)
[2024-06-10] MEDS: LACTATED RINGERS 1,000 ML IV SCH (06:49)
[2024-06-10] MEDS: ONDANSETRON 4 MG/2 ML VIAL IVP ONE (06:49)
[2024-06-10] MEDS: DEXAMETHASONE SOD PHOSPHATE 4 MG/ML 1 ML VIAL IV ONE (06:49)
[2024-06-10] MEDS ORDERED: HYDROmorphone 0.5 MG/0.5 ML SYRINGE IVP PRN (07:00)
[2024-06-10] MEDS ORDERED: PROPOFOL 10 MG/ML 20 ML VIAL IV ONE (07:23)
[2024-06-10] MEDS ORDERED: LIDOCAINE 1% INJ 10MG/ML (20 ML MDV) ONE (07:23)
[2024-06-10] MEDS ORDERED: fentaNYL (PF) 50 MCG/ML 2 ML AMP ONE (07:23)
[2024-06-10] MEDS: BUPIVACAINE (PF) 0.25% 30 ML VIAL INTRAARTIC ONE ×2 (07:28→07:47)
[2024-06-10] MEDS: LACTATED RINGERS 1,000 ML IV ONE (07:59)
[2024-06-10 08:12] VITALS: TEMP 97.2
--- NOTE | 2024-06-10 08:16 | P.OP ---
Date of Procedure: 06/10/24 Preoperative Diagnosis: Internal derangement left knee Postoperative Diagnosis: 1. Tear medial and lateral meniscus left knee 2. Grade IV chondromalacia medial femoral condyle left knee 3. Reactive synovitis medial, lateral and suprapatellar compartments left knee 4. Grade II/III chondromalacia patella left knee Procedure(s) Performed: 1. Arthroscopic partial medial and lateral meniscectomy left knee 2. Arthroscopic microfracture medial femoral condyle left knee 3. Arthroscopic partial synovectomy medial, lateral and suprapatellar compartments left knee 4. Arthroscopic chondroplasty patella left knee Anesthesia: VASILIYA, local Surgeon: Rafi Diallo Estimated Blood Loss (ml): 7 Pathology: none sent Condition: stable Disposition: PACU Indications for Procedure: 79-year-old gentleman seen with progressive left knee pain. After having treatment options discussed, he elected to proceed with arthroscopy. Operative Findings: See description of procedure Description of Procedure: Patient was taken to the operative suite. Patient underwent a general anesthetic by the department of anesthesia. Patient was given preoperative antibiotics. The left lower extremity was placed in a well-padded arthroscopic leg magaña. The left leg was prepped and draped in the normal sterile orthopedic fashion. A lateral parapatellar and suprapatellar incision was made. Trochars were inserted. Arthroscopy was initiated. Suprapatellar pouch revealed diffuse thick reactive synovitis. The patellofemoral joint appeared to articulate congruently. There was grade II/III chondromalacia of the patella with some osteochondral flap tears present. The scope was guided into the medial gutter. No loose bodies or plica were identified. The scope was then guided into the medial compartment. A medial parapatellar incision was made. Trocar inserted followed by probe. There was a radial tear involving the posterior horn medial meniscus. There was an area of grade III/IV chondromalacia medial femoral condyle along the lateral weightbearing surface with some osteochondral flap tears present. There was reactive synovitis anteriorly. I performed a partial medial meniscectomy getting down to stable meniscal tissue. I performed a chondroplasty of the medial femoral condyle getting down to stable osteochondral tissue. I performed a partial synovectomy decompressing the reactive synovitis. I did note an area of grade IV chondromalacia medial femoral condyle with exposed bone measuring less than a centimeter. I introduced a microfracture awl and I performed a microfracture to that area penetrating the bone with resultant bleeding at the microfracture site. The residual meniscus was stable. The residual osteochondral surface was stable. There was good decompression of the synovitis. Scope and probe were then guided into the intercondylar notch. Cruciates were identified, probed and found to be stable. The scope and probe were then guided into lateral compartment. There were radial tears involving the mid body and posterior horn lateral meniscus. There was grade I/II chondromalacia of the lateral compartment without tears. There was some reactive synovitis anteriorly. I performed a partial lateral meniscectomy getting down to stable meniscal tissue. I performed a partial synovectomy decompressing the reactive synovitis. The residual meniscus was stable. There was good decompression of the synovitis. The scope was in guided back into the suprapatellar compartment. I introduced a motorized shaver into the supra compartment. I debrided some piecemeal fragments of meniscus I encountered. I performed a chondroplasty of the patella getting down to stable osteochondral tissue. I performed a partial synovectomy decompressing the thick reactive synovitis. The shaver was removed. There was good decompression of the synovitis. The residual osteochondral surface of the patella appeared stable. I took one more look around the entire knee, no residual debris. Instruments were now removed from the joint. The joint was infiltrated with .25% Marcaine. Steri-Strips were applied to the portal sites. Sterile dressings were applied. The patient was placed into a TRACY hose. No tourniquet was utilized. The patient was awakened, transferred to a bed and taken to recovery stable satisfactory condition.
[2024-06-10 08:58] LABS: Glucose,Whole Blood 161 mg/dL (70-110)
[2024-06-10 09:24] VITALS: BP 121/80; PULSE 86; RESP 16
== END 2024-06-10 09:46 | disposition home or self-care (01) ==
LOC: OR 05:39
PROVIDERS: ATTEND Orthopaedic Surgery
DX: M23.92 Unspecified internal derangement of left knee